=== PATIENT | male | born 1960 | race African-American/Black ===

== ENCOUNTER 2018-01-28 06:49 | Emergency (ER) | payer SELFPAY ==
[~2018-01-28] VITALS: Ht 180.3 cm; Wt 72.7 kg
[2018-01-28] MEDS ORDERED: DIAZEPAM 5 MG TABLET PO ONE (08:00)
[2018-01-28] MEDS ORDERED: KETOROLAC 60MG/2ML VIAL IM ONE (08:00)
[2018-01-28] MEDS ORDERED: CHLORDIAZEPOXIDE 25MG CAPSULE PO ONE (10:45)
[2018-01-28 12:49] VITALS: BP 130/83
== END 2018-01-28 12:49 | disposition home or self-care (01) ==
LOC: ER 06:49
DX: M62.830 Muscle spasm of back (principal); F10.239 Alcohol dependence with withdrawal, unspecified; Y90.9 Presence of alcohol in blood, level not specified; R03.0 Elevated blood-pressure reading, without diagnosis of hypertension; R05 Cough
CPT/HCPCS: 96372; 99283; J1885

== ENCOUNTER 2018-07-30 19:58 | Inpatient (IN) | payer SELFPAY ==
[~2018-07-30] VITALS: Ht 182.9 cm; Wt 77.6 kg
[2018-07-30] MEDS ORDERED: SODIUM CHLORIDE 0.9% 1,000 ML IV ONE (21:06)
[2018-07-30] MEDS ORDERED: ASPIRIN 81MG TABLET PO ONE (21:15)
[2018-07-30] MEDS ORDERED: LORAZEPAM 2MG/ML CPJ IV ONE (21:15)
[2018-07-30] MEDS ORDERED: FOLIC ACID 1 MG, THIAMINE HCL 100 MG, MVI, ADULT NO.1 10 ML in DEXTROSE 5% WATER 1,000 ML IV ONE ×4 (21:15)
[2018-07-30 21:21] LABS: CHLORIDE 98 mEq/L (98-107)
[2018-07-30] MEDS ORDERED: THIAMINE HCL 100 MG/1 ML 2ML VIAL ONE (21:24)
[2018-07-30 21:25] LABS: ETHANOL BLOOD < 10 mg/dL; INR 1.1; PARTIAL THROMBOPLASTIN TIME 26.4 sec (23.4-31.0); PROTHROMBIN TIME 11.3 sec (9.6-11.0)
[2018-07-30 21:31] LABS: BASOPHILS % 0.4 % (0.0-2.0); HEMATOCRIT. 43.4 % (42.0-52.0); HEMOGLOBIN. 14.9 g/dL (14.0-18.0); LYMPHOCYTES % 9.1 % (20.0-50.0); MEAN CORPUSCULAR HEMOGLOBIN 34.2 pg (28.0-32.0); MEAN CORPUSCULAR VOLUME 99.4 fL (80.0-94.0); MEAN PLATELET VOLUME 9.9 fl (7.4-10.4); MONOCYTES % 9.9 % (2.0-8.0); NEUTROPHILS % 80.6 % (40.0-76.0); PLATELET 88 x1000/uL (130-400); RED BLOOD CELL COUNT 4.36 mill/uL (4.7-6.1); RED CELL DISTRIBUTION WIDTH 12.8 % (11.6-14.6)
[2018-07-30] MEDS ORDERED: MAGNESIUM OXIDE 400MG TABLET PO STA (23:00)
[2018-07-31] VITALS (7 sets, daily range): BP systolic 94–127; BP diastolic 62–94
[2018-07-31 00:57] LABS: *AMPHETAMINES SCREEN URINE NEGATIVE (NEGATIVE); *BARBITURATES SCREEN URINE NEGATIVE (NEGATIVE); *BENZODIAZEPINES SCREEN URINE NEGATIVE (NEGATIVE); *COCAINE SCREEN URINE NEGATIVE (NEGATIVE); METHADONE URINE SCREEN NEGATIVE (NEGATIVE)
[2018-07-31 00:58] LABS: CANNABINOID URINE SCREEN NEGATIVE (NEGATIVE); OPIATES URINE SCREEN NEGATIVE (NEGATIVE); PHENCYCLIDINE URINE SCREEN NEGATIVE (NEGATIVE)
[2018-07-31] MEDS ORDERED: LORAZEPAM 2MG/ML CPJ IV PRN (03:30)
[2018-07-31] MEDS ORDERED: FOLIC ACID 1 MG, THIAMINE HCL 100 MG, MVI, ADULT NO.1 10 ML in DEXTROSE 5% WATER 1,000 ML IV SCH ×4 (05:00)
[2018-07-31] MEDS: FAMOTIDINE 20MG TABLET PO SCH ×2 (08:42→21:38)
[2018-07-31] MEDS: CHLORDIAZEPOXIDE 25MG CAPSULE PO SCH ×3 (08:43→21:38)
[2018-07-31 10:54] LABS: HEMATOCRIT. 38.9 % (42.0-52.0); HEMOGLOBIN. 13.1 g/dL (14.0-18.0); MEAN CORPUSCULAR HEMOGLOBIN 33.8 pg (28.0-32.0); MEAN CORPUSCULAR VOLUME 100.5 fL (80.0-94.0); MEAN PLATELET VOLUME 10.1 fl (7.4-10.4); PLATELET 73 x1000/uL (130-400); RED BLOOD CELL COUNT 3.87 mill/uL (4.7-6.1); RED CELL DISTRIBUTION WIDTH 12.5 % (11.6-14.6)
[2018-07-31 11:19] LABS: CHLORIDE 104 mEq/L (98-107)
[2018-07-31] MEDS ORDERED: POTASSIUM CHLORIDE 20MEQ TABLET SR PO NR (12:00)
[2018-07-31] MEDS ORDERED: HYDROCODONE/ACETAMINOPHEN 5/325MG TABLET PO PRN (13:00)
[2018-07-31] MEDS: GABAPENTIN 300MG CAPSULE PO SCH ×2 (13:25→21:38)
[2018-07-31 14:45] LABS: T4 FREE 1.14 ng/dL (0.76-1.46)
[2018-07-31 16:07] LABS: CREATINE KINASE 131 IU/L (39-308)
[2018-07-31 16:08] LABS: CREATINE KINASE MB FRACTION < 1.0 ng/mL (0.5-3.6)
[2018-07-31 17:11] LABS: PLATELET ESTIMATE DECREASED
[2018-07-31] MEDS: DEXT 5%/0.45% NACL KCL 20MEQ/L 1,000 ML IV SCH (18:19)
[2018-08-01 00:35] LABS: CREATINE KINASE 109 IU/L (39-308)
[2018-08-01 00:37] LABS: CREATINE KINASE MB FRACTION < 1.0 ng/mL (0.5-3.6)
[2018-08-01 03:54] VITALS: BP 93/59
[2018-08-01] MEDS: CHLORDIAZEPOXIDE 25MG CAPSULE PO SCH ×3 (06:27→21:37)
[2018-08-01] MEDS: GABAPENTIN 300MG CAPSULE PO SCH ×3 (06:27→21:37)
[2018-08-01] MEDS: FOLIC ACID 1 MG, THIAMINE HCL 100 MG, MVI, ADULT NO.1 10 ML in DEXTROSE 5% WATER 1,000 ML IV SCH ×4 (06:27)
[2018-08-01 07:29] LABS: CHLORIDE 109 mEq/L (98-107)
[2018-08-01 08:01] VITALS: BP 115/75
[2018-08-01 08:07] LABS: CREATINE KINASE 95 IU/L (39-308)
[2018-08-01 08:10] LABS: CREATINE KINASE MB FRACTION < 1.0 ng/mL (0.5-3.6)
[2018-08-01] MEDS: FAMOTIDINE 20MG TABLET PO SCH ×2 (09:29→21:36)
[2018-08-01 12:00] VITALS: BP 121/72
[2018-08-01] MEDS: DEXT 5%/0.45% NACL KCL 20MEQ/L 1,000 ML IV SCH ×2 (15:47→22:58)
[2018-08-01 16:00] VITALS: BP 112/72
[2018-08-01 20:14] VITALS: BP 97/58
[2018-08-02 00:09] VITALS: BP 90/56
[2018-08-02 04:00] VITALS: BP 102/68
[2018-08-02] MEDS: CHLORDIAZEPOXIDE 25MG CAPSULE PO SCH ×2 (06:39→13:22)
[2018-08-02] MEDS: GABAPENTIN 300MG CAPSULE PO SCH ×2 (06:39→13:22)
[2018-08-02] MEDS: DEXT 5%/0.45% NACL KCL 20MEQ/L 1,000 ML IV SCH ×2 (07:30→14:37)
[2018-08-02 08:00] VITALS: BP 102/73
[2018-08-02] MEDS: FAMOTIDINE 20MG TABLET PO SCH (08:52)
[2018-08-02] MEDS: FOLIC ACID 1 MG, THIAMINE HCL 100 MG, MVI, ADULT NO.1 10 ML in DEXTROSE 5% WATER 1,000 ML IV SCH ×4 (08:53)
[2018-08-02 11:56] VITALS: BP 105/73
[2018-08-02 12:04] VITALS: BP 102/62
[2018-08-02 13:19] VITALS: BP 119/75
== END 2018-08-02 18:30 | disposition home or self-care (01) | DRG 201 ==
LOC: ER 19:58 → 6WST 22:24 → EDBEDREQ 22:27 → EDBEDREQTM 22:27 → ENRESERV 23:50
PROVIDERS: ADMIT Internal Medicine; ATTEND Internal Medicine
DX: I47.1 Supraventricular tachycardia (principal); E87.1 Hypo-osmolality and hyponatremia; F41.9 Anxiety disorder, unspecified; M48.54XA Collapsed vertebra, not elsewhere classified, thoracic region, initial encounter for fracture; F10.239 Alcohol dependence with withdrawal, unspecified; F17.210 Nicotine dependence, cigarettes, uncomplicated; Z71.41 Alcohol abuse counseling and surveillance of alcoholic; Z79.899 Other long term (current) drug therapy
CPT/HCPCS: 36415; 71045; 72148; 80048; 80061; 80305; 80320; 82550; 82553; 83036; 83735; 83880; 84439; 84443; 84484; 85379; 93005; 93306; 96374; 97110; 97116; 97162; 99285; J2060; J3411; J3490; J7030; J7070; G0480

== ENCOUNTER 2018-09-23 19:03 | Inpatient (IN) | payer SELFPAY ==
[~2018-09-23] VITALS: Ht 180.3 cm; Wt 69.1 kg
[2018-09-24] MEDS ORDERED: ONDANSETRON HCL 4MG/2ML INJ IV STA (01:04)
[2018-09-24] MEDS ORDERED: SODIUM CHLORIDE 0.9% 1,000 ML IV ONE (01:04)
[2018-09-24 01:50] LABS: BASOPHILS % 0.7 % (0.0-2.0); EOSINOPHILS % 0.2 % (0.0-5.0); HEMATOCRIT. 44.1 % (42.0-52.0); HEMOGLOBIN. 14.9 g/dL (14.0-18.0); LYMPHOCYTES % 57.2 % (20.0-50.0); MEAN CORPUSCULAR HEMOGLOBIN 34.3 pg (28.0-32.0); MEAN CORPUSCULAR VOLUME 101.4 fL (80.0-94.0); MEAN PLATELET VOLUME 9.7 fl (7.4-10.4); MONOCYTES % 14.3 % (2.0-8.0); NEUTROPHILS % 27.6 % (40.0-76.0); PLATELET 73 x1000/uL (130-400); RED BLOOD CELL COUNT 4.35 mill/uL (4.7-6.1); RED CELL DISTRIBUTION WIDTH 13.5 % (11.6-14.6)
[2018-09-24 01:52] LABS: CHLORIDE 103 mEq/L (98-107)
[2018-09-24] MEDS ORDERED: IOHEXOL-300 100 ML BOTTLE ONE (03:01)
[2018-09-24] MEDS ORDERED: CEFTRIAXONE 1 G PREMIX 50 ML IV ONE (06:15)
[2018-09-24 08:00] VITALS: BP 145/91
[2018-09-24] MEDS ORDERED: ONDANSETRON HCL 4MG/2ML INJ IV PRN (08:00)
[2018-09-24] MEDS ORDERED: MAGNESIUM/ALUMINUM HYDROXIDE/SIMETHICONE 30ML UDC PO PRN (08:00)
[2018-09-24] MEDS ORDERED: CLONIDINE 0.1MG TABLET PO PRN (08:00)
[2018-09-24] MEDS ORDERED: IPRATROPIUM/ALBUTEROL 0.5-3(2.5)MG/3ML NEB INH PRN (08:00)
[2018-09-24] MEDS ORDERED: KETOROLAC 15MG/ML VIAL IV PRN (08:00)
[2018-09-24] MEDS ORDERED: GUAIFENESIN 200MG/10ML SUGAR FREE UDC PO PRN (08:00)
[2018-09-24] MEDS ORDERED: NITROGLYCERIN 0.4MG TABLET SL SL PRN (08:00)
[2018-09-24] MEDS ORDERED: ACETAMINOPHEN 325MG TABLET PO PRN (08:00)
[2018-09-24] MEDS ORDERED: DOCUSATE SODIUM 100MG CAPSULE PO PRN (08:00)
[2018-09-24] MEDS ORDERED: ENOXAPARIN 40MG/0.4ML SYR SUBCUT SCH (08:00)
[2018-09-24 09:35] VITALS: BP 145/91
[2018-09-24] MEDS: FAMOTIDINE 20MG TABLET PO SCH ×2 (10:53→21:24)
[2018-09-24] MEDS: ASPIRIN 81MG EC TABLET PO SCH (10:53)
[2018-09-24 12:00] VITALS: BP 129/87
[2018-09-24] MEDS: SODIUM CHLORIDE 0.9% 1,000 ML IV SCH (12:50)
[2018-09-24 15:04] LABS: CREATINE KINASE 193 IU/L (39-308)
[2018-09-24 15:05] LABS: CREATINE KINASE MB FRACTION < 1.0 ng/mL (0.5-3.6)
[2018-09-24 16:00] VITALS: BP 145/89
[2018-09-24] MEDS ORDERED: MVI, ADULT NO.1 10 ML, FOLIC ACID 1 MG, THIAMINE HCL 100 MG in SODIUM CHLORIDE 0.9% 1,0... IV SCH ×4 (16:30)
[2018-09-24 20:00] VITALS: BP 126/72
[2018-09-24] MEDS ORDERED: ZOLPIDEM TARTRATE 5MG TABLET PO PRN (21:00)
[2018-09-25] VITALS: BP 127/75
[2018-09-25 00:26] LABS: CREATINE KINASE 184 IU/L (39-308)
[2018-09-25 00:27] LABS: CREATINE KINASE MB FRACTION < 1.0 ng/mL (0.5-3.6)
[2018-09-25 04:00] VITALS: BP 135/83
[2018-09-25] MEDS: SODIUM CHLORIDE 0.9% 1,000 ML IV SCH ×2 (04:30→06:09)
[2018-09-25 08:00] VITALS: BP 132/86
[2018-09-25] MEDS: FAMOTIDINE 20MG TABLET PO SCH (08:17)
[2018-09-25] MEDS: ASPIRIN 81MG EC TABLET PO SCH (08:17)
[2018-09-25 10:01] VITALS: BP 132/86
[2018-09-29] MEDS ORDERED: L25 MT (11:14)
== END 2018-09-25 11:01 | disposition home or self-care (01) | DRG 243 ==
LOC: ER 19:03 → 5WST 09-24 06:12 → EDBEDREQ 09-24 06:21 → EDBEDREQTM 09-24 06:21 → ENRESERV 09-24 08:07
PROVIDERS: ADMIT Internal Medicine; ATTEND Internal Medicine
DX: K21.9 Gastro-esophageal reflux disease without esophagitis (principal); D61.818 Other pancytopenia; K70.9 Alcoholic liver disease, unspecified; E86.0 Dehydration; F10.20 Alcohol dependence, uncomplicated; F17.210 Nicotine dependence, cigarettes, uncomplicated; K76.0 Fatty (change of) liver, not elsewhere classified; M54.5 Low back pain; R55 Syncope and collapse; G47.00 Insomnia, unspecified
CPT/HCPCS: 36415; 71045; 74177; 80061; 82550; 82553; 83036; 83605; 83880; 84484; 85379; 93005; 93970; 96361; 96365; 96375; 99285; J0696; J2405; J3411; J3490; J7030; Q9967

== ENCOUNTER 2018-09-26 20:49 | Emergency (ER) | payer SELFPAY ==
[~2018-09-26] VITALS: Ht 175.3 cm; Wt 82.0 kg
[2018-09-26] MEDS ORDERED: SODIUM CHLORIDE 0.9% 1,000 ML IV ONE (21:30)
[2018-09-26] MEDS ORDERED: LORAZEPAM 2MG/ML CPJ IV ONE (21:30)
[2018-09-26 21:34] LABS: HEMATOCRIT. 40.8 % (42.0-52.0); MEAN CORPUSCULAR HEMOGLOBIN 34.9 pg (28.0-32.0); MEAN CORPUSCULAR VOLUME 101.9 fL (80.0-94.0); PLATELET 55 x1000/uL (130-400); RED CELL DISTRIBUTION WIDTH 12.9 % (11.6-14.6)
[2018-09-26 21:39] LABS: CHLORIDE 102 mEq/L (98-107)
[2018-09-26 21:59] LABS: PLATELET ESTIMATE DECREASED
[2018-09-27] MEDS ORDERED: LORAZEPAM 2MG/ML CPJ IV ONE (00:30)
[2018-09-27 01:28] VITALS: BP 121/84
[2018-09-28] MEDS ORDERED: LORA-250 PO (15:38)
[2018-09-29] MEDS ORDERED: L25 MT (11:14)
== END 2018-09-27 01:32 | disposition home or self-care (01) ==
LOC: ER 23:45
DX: S09.90XA Unspecified injury of head, initial encounter (principal); R55 Syncope and collapse; F10.239 Alcohol dependence with withdrawal, unspecified; D75.89 Other specified diseases of blood and blood-forming organs; D69.6 Thrombocytopenia, unspecified; D72.819 Decreased white blood cell count, unspecified; E87.6 Hypokalemia; I10 Essential (primary) hypertension; F17.200 Nicotine dependence, unspecified, uncomplicated; Z79.899 Other long term (current) drug therapy; W01.10XA Fall on same level from slipping, tripping and stumbling with subsequent striking against unspecified object, initial encounter; Y93.89 Activity, other specified; Y92.89 Other specified places as the place of occurrence of the external cause; Y99.8 Other external cause status; Y90.9 Presence of alcohol in blood, level not specified
CPT/HCPCS: 36415; 70450; 71045; 80053; 83880; 84484; 85025; 93005; 96361; 96374; 96376; 99284; J2060; J7030; Z7610

== ENCOUNTER 2018-09-27 16:41 | Inpatient (IN) | payer SELFPAY ==
[~2018-09-27] VITALS: Ht 180.3 cm; Wt 77.1 kg
[2018-09-27] MEDS ORDERED: SODIUM CHLORIDE 0.9% 1,000 ML IV ONE (21:02)
[2018-09-27] MEDS ORDERED: ONDANSETRON HCL 4MG/2ML INJ IV STA (21:02)
[2018-09-27] MEDS ORDERED: LORAZEPAM 2MG/ML CPJ IV STA (21:30)
[2018-09-27] MEDS ORDERED: FOLIC ACID 1 MG, THIAMINE HCL 100 MG, MVI, ADULT NO.1 10 ML in DEXTROSE 5% WATER 1,000 ML IV ONE ×4 (21:30)
[2018-09-27 21:36] LABS: CHLORIDE 101 mEq/L (98-107)
[2018-09-27 21:40] LABS: ETHANOL BLOOD < 10 mg/dL
[2018-09-27 21:41] LABS: HEMATOCRIT. 43.6 % (42.0-52.0); HEMOGLOBIN. 14.6 g/dL (14.0-18.0); MEAN CORPUSCULAR HEMOGLOBIN 34.6 pg (28.0-32.0); MEAN CORPUSCULAR VOLUME 103.2 fL (80.0-94.0); MEAN PLATELET VOLUME 10.3 fl (7.4-10.4); PLATELET 55 x1000/uL (130-400); RED BLOOD CELL COUNT 4.22 mill/uL (4.7-6.1); RED CELL DISTRIBUTION WIDTH 13.3 % (11.6-14.6)
[2018-09-27 21:53] LABS: INR 1.1; PARTIAL THROMBOPLASTIN TIME 28.4 sec (23.4-31.0)
[2018-09-27 22:00] LABS: PLATELET ESTIMATE DECREASED
[2018-09-27 22:40] LABS: *AMPHETAMINES SCREEN URINE NEGATIVE (NEGATIVE); *BARBITURATES SCREEN URINE NEGATIVE (NEGATIVE); *BENZODIAZEPINES SCREEN URINE NEGATIVE (NEGATIVE); *COCAINE SCREEN URINE NEGATIVE (NEGATIVE)
[2018-09-27 22:41] LABS: CANNABINOID URINE SCREEN NEGATIVE (NEGATIVE); METHADONE URINE SCREEN NEGATIVE (NEGATIVE); OPIATES URINE SCREEN NEGATIVE (NEGATIVE); PHENCYCLIDINE URINE SCREEN NEGATIVE (NEGATIVE)
[2018-09-27] MEDS ORDERED: ASPIRIN 325MG EC TABLET PO ONE (23:30)
[2018-09-28 09:50] VITALS: BP 128/96
[2018-09-28] MEDS ORDERED: ONDANSETRON HCL 4MG/2ML INJ IV PRN (10:00)
[2018-09-28] MEDS ORDERED: ACETAMINOPHEN 650MG/20.3ML UDC GT PRN (10:00)
[2018-09-28] MEDS ORDERED: GUAIFENESIN 200MG/10ML SUGAR FREE UDC PO PRN (10:00)
[2018-09-28] MEDS ORDERED: DOCUSATE SODIUM 100MG CAPSULE PO PRN (10:00)
[2018-09-28] MEDS ORDERED: ACETAMINOPHEN 325MG TABLET PO PRN (10:00)
[2018-09-28] MEDS ORDERED: ACETAMINOPHEN 650MG SUPP PR PRN (10:00)
[2018-09-28] MEDS ORDERED: NA PHOS,M-B/NA PHOS,DI-BA ENEMA 118ML PR PRN (10:00)
[2018-09-28] MEDS ORDERED: MAGNESIUM/ALUMINUM HYDROXIDE/SIMETHICONE 30ML UDC PO PRN (10:00)
[2018-09-28] MEDS ORDERED: DIPHENHYDRAMINE 50MG/ML VIAL IV PRN (10:00)
[2018-09-28] MEDS ORDERED: IPRATROPIUM/ALBUTEROL 0.5-3(2.5)MG/3ML NEB INH PRN (10:00)
[2018-09-28] MEDS: THIAMINE HCL 100MG TABLET PO SCH (10:45)
[2018-09-28 12:00] VITALS: BP 115/78
[2018-09-28] MEDS: CHLORDIAZEPOXIDE 25MG CAPSULE PO SCH ×2 (12:46→21:10)
[2018-09-28] MEDS: SODIUM CHLORIDE 0.9% INJ 3ML FLUSH IVF SCH ×2 (13:38→21:11)
[2018-09-28] MEDS ORDERED: CHLORDIAZEPOXIDE 25MG CAPSULE PO SCH (14:00)
[2018-09-28] MEDS ORDERED: LORA-250 PO (15:38)
[2018-09-28 16:00] VITALS: BP 117/76
[2018-09-28] MEDS: NICOTINE 7MG PATCH TD SCH ×2 (16:15→17:43)
[2018-09-28 16:59] LABS: CLARITY URINE CLEAR (CLEAR); COLOR URINE YELLOW (YELLOW); KETONES URINE NEGATIVE (NEGATIVE); LEUKOCYTE ESTERASE URINE NEGATIVE (NEGATIVE); NITRITE URINE NEGATIVE (NEGATIVE); OCCULT BLOOD URINE NEGATIVE (NEGATIVE); PH URINE 6.5 (4.5-8.0); PROTEIN URINE NEGATIVE (NEGATIVE); SPECIFIC GRAVITY URINE 1.006 (1.005-1.030)
[2018-09-28 17:13] LABS: *BENZODIAZEPINES SCREEN URINE NEGATIVE (NEGATIVE); *COCAINE SCREEN URINE NEGATIVE (NEGATIVE)
[2018-09-28 17:14] LABS: *AMPHETAMINES SCREEN URINE NEGATIVE (NEGATIVE); *BARBITURATES SCREEN URINE NEGATIVE (NEGATIVE); CANNABINOID URINE SCREEN NEGATIVE (NEGATIVE); METHADONE URINE SCREEN NEGATIVE (NEGATIVE); OPIATES URINE SCREEN NEGATIVE (NEGATIVE); PHENCYCLIDINE URINE SCREEN NEGATIVE (NEGATIVE)
[2018-09-28 20:28] VITALS: BP 112/79
[2018-09-29] VITALS (7 sets, daily range): BP systolic 110–133; BP diastolic 69–85
[2018-09-29] MEDS: SODIUM CHLORIDE 0.9% INJ 3ML FLUSH IVF SCH ×2 (05:09→14:21)
[2018-09-29] MEDS: CHLORDIAZEPOXIDE 25MG CAPSULE PO SCH ×2 (05:09→14:21)
[2018-09-29] MEDS ORDERED: FOLIC ACID 1MG TABLET PO SCH (09:00)
[2018-09-29] MEDS: NICOTINE 7MG PATCH TD SCH (09:11)
[2018-09-29] MEDS: THIAMINE HCL 100MG TABLET PO SCH (09:11)
[2018-09-29 09:34] LABS: HEMATOCRIT. 39.7 % (42.0-52.0); HEMOGLOBIN. 13.6 g/dL (14.0-18.0); MEAN CORPUSCULAR HEMOGLOBIN 34.9 pg (28.0-32.0); MEAN PLATELET VOLUME 11.4 fl (7.4-10.4); RED CELL DISTRIBUTION WIDTH 12.7 % (11.6-14.6)
[2018-09-29 09:58] LABS: CHLORIDE 107 mEq/L (98-107); PLATELET 49 x1000/uL (130-400)
[2018-09-29 10:05] LABS: LDL CHOLESTEROL 53 mg/dL (5-100)
[2018-09-29 10:06] LABS: HDL CHOLESTEROL 52 mg/dL (40-59)
[2018-09-29 10:18] LABS: PLATELET ESTIMATE DECREASED
[2018-09-29] MEDS ORDERED: L25 MT (11:14)
[2018-09-29] MEDS ORDERED: IBUPROFEN 400MG TABLET PO SCH (11:15)
== END 2018-09-29 17:39 | disposition home or self-care (01) | DRG 775 ==
LOC: ER 17:33 → 6WST 09-28 00:12 → EDBEDREQTM 09-28 00:16 → EDBEDREQDT 09-28 00:16 → EDBEDREQ 09-28 00:16 → ENRESERV 09-28 07:45 → 6WST 09-28 19:52
PROVIDERS: ADMIT Family Medicine; ATTEND Family Medicine
DX: F10.230 Alcohol dependence with withdrawal, uncomplicated (principal); R45.851 Suicidal ideations; Y90.0 Blood alcohol level of less than 20 mg/100 ml; F17.210 Nicotine dependence, cigarettes, uncomplicated; G89.29 Other chronic pain; I10 Essential (primary) hypertension; M54.9 Dorsalgia, unspecified; F41.9 Anxiety disorder, unspecified; Z60.2 Problems related to living alone; Z79.899 Other long term (current) drug therapy
CPT/HCPCS: 36415; 71045; 72070; 72110; 80061; 80305; 80307; 80320; 80329; 82140; 83735; 83880; 84484; 93005; 96374; 96375; 99285; J2060; J2405; J3411; J3490; J7030; J7070; G0480

== ENCOUNTER 2018-10-08 20:38 | Emergency (ER) | payer SELFPAY ==
[~2018-10-08] VITALS: Ht 180.3 cm; Wt 75.0 kg
[~2018-10-08 20:38] MED LIST: L25 MT; LORA-250 PO
[2018-10-08] MEDS ORDERED: ONDANSETRON HCL 4MG/2ML INJ IV STA (23:34)
[2018-10-08] MEDS ORDERED: MORPHINE SULFATE 4 MG/ML CPJ (NOT FOR IM USE) IV STA (23:34)
[2018-10-08] MEDS ORDERED: SODIUM CHLORIDE 0.9% 1,000 ML IV ONE (23:34)
[2018-10-08] MEDS ORDERED: FOLIC ACID 1 MG, THIAMINE HCL 100 MG, MVI, ADULT NO.1 10 ML in DEXTROSE 5% WATER 1,000 ML IV ONE ×4 (23:45)
[2018-10-08] MEDS ORDERED: LORAZEPAM 2MG/ML CPJ IV ONE (23:45)
[2018-10-08] MEDS ORDERED: MAGNESIUM/ALUMINUM HYDROXIDE/SIMETHICONE 30ML UDC PO ONE (23:45)
[2018-10-09 00:04] LABS: HEMATOCRIT. 43.9 % (42.0-52.0); HEMOGLOBIN. 14.9 g/dL (14.0-18.0); MEAN CORPUSCULAR HEMOGLOBIN 34.4 pg (28.0-32.0); MEAN CORPUSCULAR VOLUME 101.4 fL (80.0-94.0); MEAN PLATELET VOLUME 8.3 fl (7.4-10.4); PLATELET 135 x1000/uL (130-400); RED BLOOD CELL COUNT 4.33 mill/uL (4.7-6.1); RED CELL DISTRIBUTION WIDTH 13.2 % (11.6-14.6)
[2018-10-09 00:06] LABS: CHLORIDE 107 mEq/L (98-107)
[2018-10-09 00:12] LABS: ETHANOL BLOOD 248 mg/dL
[2018-10-09 01:58] LABS: PLATELET ESTIMATE NORMAL
[2018-10-09] MEDS ORDERED: LORAZEPAM 2MG/ML CPJ IV ONE (02:45)
[2018-10-09 06:00] VITALS: BP 103/72
== END 2018-10-09 06:00 | disposition home or self-care (01) ==
LOC: ER 20:38
DX: T51.0X1A Toxic effect of ethanol, accidental (unintentional), initial encounter (principal); K29.20 Alcoholic gastritis without bleeding; R07.89 Other chest pain; Y90.8 Blood alcohol level of 240 mg/100 ml or more; F17.210 Nicotine dependence, cigarettes, uncomplicated; Z71.6 Tobacco abuse counseling; Y92.018 Other place in single-family (private) house as the place of occurrence of the external cause
CPT/HCPCS: 36415; 71045; 80053; 80320; 83690; 83880; 84484; 85025; 93005; 96365; 96366; 96375; 96376; 99284; J2060; J2270; J2405; J3411; J3490; J7030; J7070; G0480

== ENCOUNTER 2018-10-10 02:58 | Emergency (ER) | payer SELFPAY ==
[~2018-10-10] VITALS: Ht 180.3 cm; Wt 81.0 kg
[2018-10-10 05:20] LABS: CHLORIDE 106 mEq/L (98-107)
[2018-10-10 05:30] LABS: BASOPHILS % 0.9 % (0.0-2.0); EOSINOPHILS % 0.6 % (0.0-5.0); HEMATOCRIT. 43.1 % (42.0-52.0); HEMOGLOBIN. 14.7 g/dL (14.0-18.0); LYMPHOCYTES % 50.3 % (20.0-50.0); MEAN CORPUSCULAR VOLUME 102.5 fL (80.0-94.0); MEAN PLATELET VOLUME 8.8 fl (7.4-10.4); MONOCYTES % 14.7 % (2.0-8.0); NEUTROPHILS % 33.5 % (40.0-76.0); PLATELET 113 x1000/uL (130-400)
[2018-10-10 08:15] VITALS: BP 125/87
== END 2018-10-10 08:20 | disposition home or self-care (01) ==
LOC: ER 02:58
DX: R26.2 Difficulty in walking, not elsewhere classified (principal); M54.5 Low back pain; R03.0 Elevated blood-pressure reading, without diagnosis of hypertension; F10.10 Alcohol abuse, uncomplicated; Y90.7 Blood alcohol level of 200-239 mg/100 ml; F17.210 Nicotine dependence, cigarettes, uncomplicated; Z71.6 Tobacco abuse counseling
CPT/HCPCS: 36415; 71045; 72100; 80320; 93005; 99284; G0480

== ENCOUNTER 2018-10-10 16:45 | Inpatient (IN) | payer SELFPAY ==
[~2018-10-10] VITALS: Ht 180.3 cm; Wt 74.8 kg
[2018-10-10] MEDS ORDERED: LORAZEPAM 2MG/ML CPJ IV ONE (22:45)
[2018-10-10 23:09] LABS: BASOPHILS % 1.1 % (0.0-2.0); EOSINOPHILS % 0.8 % (0.0-5.0); HEMATOCRIT. 45.1 % (42.0-52.0); HEMOGLOBIN. 15.1 g/dL (14.0-18.0); LYMPHOCYTES % 44.1 % (20.0-50.0); MEAN CORPUSCULAR HEMOGLOBIN 34.3 pg (28.0-32.0); MEAN CORPUSCULAR VOLUME 102.5 fL (80.0-94.0); MEAN PLATELET VOLUME 9.5 fl (7.4-10.4); MONOCYTES % 13.9 % (2.0-8.0); NEUTROPHILS % 40.1 % (40.0-76.0); PLATELET 97 x1000/uL (130-400); RED CELL DISTRIBUTION WIDTH 13.1 % (11.6-14.6)
[2018-10-10 23:14] LABS: CHLORIDE 105 mEq/L (98-107)
[2018-10-10 23:19] LABS: ETHANOL BLOOD 80 mg/dL
[2018-10-11 00:55] LABS: *AMPHETAMINES SCREEN URINE NEGATIVE (NEGATIVE); *BARBITURATES SCREEN URINE NEGATIVE (NEGATIVE); *BENZODIAZEPINES SCREEN URINE PRESUMTIVE POSITIVE (NEGATIVE); *COCAINE SCREEN URINE NEGATIVE (NEGATIVE); CANNABINOID URINE SCREEN NEGATIVE (NEGATIVE); METHADONE URINE SCREEN NEGATIVE (NEGATIVE); OPIATES URINE SCREEN NEGATIVE (NEGATIVE); PHENCYCLIDINE URINE SCREEN NEGATIVE (NEGATIVE)
[2018-10-11] MEDS ORDERED: ONDANSETRON HCL 4MG/2ML INJ IV PRN (01:00)
[2018-10-11] MEDS ORDERED: DIPHENHYDRAMINE 50MG/ML VIAL IV PRN (01:00)
[2018-10-11] MEDS ORDERED: LORAZEPAM 2MG/ML CPJ IV PRN (01:00)
[2018-10-11] MEDS ORDERED: ENOXAPARIN 40MG/0.4ML SYR SUBCUT SCH (01:00)
[2018-10-11] MEDS ORDERED: MORPHINE SULFATE 2 MG/ML CPJ (NOT FOR IM USE) IV PRN (01:00)
[2018-10-11] MEDS ORDERED: CLONIDINE 0.1MG TABLET PO PRN (01:00)
[2018-10-11] MEDS ORDERED: HYDROCODONE/ACETAMINOPHEN 5/325MG TABLET PO PRN (01:00)
[2018-10-11 02:03] VITALS: BP 149/98
[2018-10-11] MEDS: SODIUM CHLORIDE 0.9% 1,000 ML IV SCH ×3 (03:27→22:21)
[2018-10-11 04:00] VITALS: BP 118/79
[2018-10-11 08:00] VITALS: BP 132/86
[2018-10-11 08:35] LABS: CREATINE KINASE 155 IU/L (39-308)
[2018-10-11 08:36] LABS: CREATINE KINASE MB FRACTION < 1.0 ng/mL (0.5-3.6)
[2018-10-11] MEDS ORDERED: THIAMINE HCL 100MG TABLET PO SCH (09:00)
[2018-10-11] MEDS ORDERED: FOLIC ACID 1 MG, THIAMINE HCL 100 MG, MVI, ADULT NO.1 10 ML in DEXTROSE 5% WATER 1,000 ML IV ONE ×4 (11:00)
[2018-10-11] MEDS: CHLORDIAZEPOXIDE 25MG CAPSULE PO SCH ×2 (11:09→17:07)
[2018-10-11 12:00] VITALS: BP 123/88
[2018-10-11 15:51] LABS: CREATINE KINASE 135 IU/L (39-308)
[2018-10-11 15:52] LABS: CREATINE KINASE MB FRACTION < 1.0 ng/mL (0.5-3.6)
[2018-10-11 16:00] VITALS: BP 112/77
[2018-10-11 20:00] VITALS: BP 115/73
[2018-10-12] VITALS: BP 121/78
[2018-10-12] MEDS: CHLORDIAZEPOXIDE 25MG CAPSULE PO SCH ×2 (03:45→09:02)
[2018-10-12 04:00] VITALS: BP 110/73
[2018-10-12 06:54] LABS: CHLORIDE 108 mEq/L (98-107)
[2018-10-12 06:58] LABS: BASOPHILS % 0.8 % (0.0-2.0); EOSINOPHILS % 1.2 % (0.0-5.0); HEMOGLOBIN. 12.9 g/dL (14.0-18.0); MEAN CORPUSCULAR HEMOGLOBIN 34.7 pg (28.0-32.0); MEAN CORPUSCULAR VOLUME 102.2 fL (80.0-94.0); MEAN PLATELET VOLUME 9.8 fl (7.4-10.4); MONOCYTES % 13.8 % (2.0-8.0); NEUTROPHILS % 40.2 % (40.0-76.0); PLATELET 72 x1000/uL (130-400); RED BLOOD CELL COUNT 3.72 mill/uL (4.7-6.1)
[2018-10-12] MEDS: SODIUM CHLORIDE 0.9% 1,000 ML IV SCH (09:02)
[2018-10-12 16:07] VITALS: BP 105/81
[2018-10-12 16:14] VITALS: BP 105/81
== END 2018-10-12 16:51 | disposition home or self-care (01) | DRG 58 ==
LOC: ER 16:45 → ENRESERV 23:59 → 6WST 10-11 00:27 → EDBEDREQ 10-11 00:31 → EDBEDREQTM 10-11 00:31
PROVIDERS: ADMIT Internal Medicine Nephrology; ATTEND Internal Medicine Nephrology
DX: R26.0 Ataxic gait (principal); D69.6 Thrombocytopenia, unspecified; K76.0 Fatty (change of) liver, not elsewhere classified; F10.239 Alcohol dependence with withdrawal, unspecified; F17.210 Nicotine dependence, cigarettes, uncomplicated; G89.29 Other chronic pain; G40.89 Other seizures; Y90.4 Blood alcohol level of 80-99 mg/100 ml; M54.5 Low back pain; Z79.899 Other long term (current) drug therapy; Z87.81 Personal history of (healed) traumatic fracture
CPT/HCPCS: 36415; 70551; 80048; 80305; 80307; 80320; 80329; 82550; 82553; 84484; 96374; 97161; 99285; J2060; J3411; J3490; J7070; G0480

== ENCOUNTER 2018-11-03 19:17 | Emergency (ER) | payer SELFPAY ==
[~2018-11-03] VITALS: Ht 182.9 cm; Wt 77.0 kg
[2018-11-04 00:48] VITALS: BP 158/93
== END 2018-11-04 00:51 | disposition home or self-care (01) ==
LOC: ER 19:17
DX: F10.129 Alcohol abuse with intoxication, unspecified (principal); Y90.8 Blood alcohol level of 240 mg/100 ml or more; R03.0 Elevated blood-pressure reading, without diagnosis of hypertension
CPT/HCPCS: 36415; 80320; 99283; G0480

== ENCOUNTER 2018-11-07 19:11 | Emergency (ER) | payer MEDICAID ==
[~2018-11-07] VITALS: Ht 180.3 cm; Wt 73.0 kg
[2018-11-08 00:23] VITALS: BP 132/86
== END 2018-11-08 01:43 | disposition home or self-care (01) ==
LOC: ER 19:11
DX: F10.20 Alcohol dependence, uncomplicated (principal); F22 Delusional disorders; Y90.0 Blood alcohol level of less than 20 mg/100 ml; F17.200 Nicotine dependence, unspecified, uncomplicated
CPT/HCPCS: 72192; 99284

== ENCOUNTER 2018-12-21 17:52 | Emergency (ER) | payer MEDICAID ==
[~2018-12-21] VITALS: Ht 180.3 cm; Wt 77.0 kg
[2018-12-21] MEDS ORDERED: SODIUM CHLORIDE 0.9% 1,000 ML IV ONE (18:31)
[2018-12-21] MEDS ORDERED: KETOROLAC 30MG/ML VIAL IV STA (18:31)
[2018-12-21] MEDS ORDERED: MORPHINE SULFATE 4 MG/ML CPJ (NOT FOR IM USE) IV STA (18:31)
[2018-12-21] MEDS ORDERED: ONDANSETRON HCL 4MG/2ML INJ IV STA (18:31)
[2018-12-21] MEDS ORDERED: LORAZEPAM 2MG/ML CPJ IV ONE (18:45)
[2018-12-21 19:21] LABS: HEMATOCRIT. 42.2 % (42.0-52.0); HEMOGLOBIN. 14.3 g/dL (14.0-18.0); MEAN CORPUSCULAR HEMOGLOBIN 34.8 pg (28.0-32.0); MEAN CORPUSCULAR VOLUME 102.9 fL (80.0-94.0); MEAN PLATELET VOLUME 10.3 fl (7.4-10.4); PLATELET 63 x1000/uL (130-400); RED BLOOD CELL COUNT 4.11 mill/uL (4.7-6.1); RED CELL DISTRIBUTION WIDTH 12.9 % (11.6-14.6)
[2018-12-21 19:25] LABS: CHLORIDE 101 mEq/L (98-107)
[2018-12-21 19:30] LABS: ETHANOL BLOOD 79 mg/dL
[2018-12-21] MEDS ORDERED: FOLIC ACID 1 MG, THIAMINE HCL 100 MG, MVI, ADULT NO.1 10 ML in DEXTROSE 5% WATER 1,000 ML IV ONE ×4 (20:15)
[2018-12-21 20:38] LABS: PLATELET ESTIMATE MARKEDLY DECREASED
[2018-12-22] MEDS ORDERED: LORAZEPAM 2MG/ML CPJ IV ONE (00:45)
[2018-12-22 01:07] LABS: CLARITY URINE CLEAR (CLEAR); COLOR URINE DARK YELLOW (YELLOW); KETONES URINE TRACE (NEGATIVE); LEUKOCYTE ESTERASE URINE NEGATIVE (NEGATIVE); NITRITE URINE NEGATIVE (NEGATIVE); OCCULT BLOOD URINE NEGATIVE (NEGATIVE); PH URINE 6.5 (4.5-8.0); PROTEIN URINE NEGATIVE (NEGATIVE); SPECIFIC GRAVITY URINE 1.016 (1.005-1.030)
[2018-12-22 01:20] LABS: *BARBITURATES SCREEN URINE NEGATIVE (NEGATIVE); *BENZODIAZEPINES SCREEN URINE PRESUMTIVE POSITIVE (NEGATIVE); *COCAINE SCREEN URINE NEGATIVE (NEGATIVE)
[2018-12-22 01:21] LABS: *AMPHETAMINES SCREEN URINE NEGATIVE (NEGATIVE); CANNABINOID URINE SCREEN NEGATIVE (NEGATIVE); METHADONE URINE SCREEN NEGATIVE (NEGATIVE); OPIATES URINE SCREEN NEGATIVE (NEGATIVE); PHENCYCLIDINE URINE SCREEN NEGATIVE (NEGATIVE)
[2018-12-22 05:38] VITALS: BP 123/74
== END 2018-12-22 05:44 | disposition home or self-care (01) ==
LOC: ER 17:52
DX: S39.012A Strain of muscle, fascia and tendon of lower back, initial encounter (principal); F41.9 Anxiety disorder, unspecified; F17.200 Nicotine dependence, unspecified, uncomplicated; I49.9 Cardiac arrhythmia, unspecified; F10.20 Alcohol dependence, uncomplicated; X58.XXXA Exposure to other specified factors, initial encounter; Y93.89 Activity, other specified; Y92.89 Other specified places as the place of occurrence of the external cause; Y99.8 Other external cause status; Y90.9 Presence of alcohol in blood, level not specified
CPT/HCPCS: 36415; 74176; 80053; 80305; 80320; 81003; 83690; 83880; 84484; 85025; 93005; 96365; 96366; 96375; 96376; 99284; J1885; J2060; J2405; J3411; J3490; J7030; J7070; Z7610; J2270; G0480

== ENCOUNTER 2018-12-22 22:21 | Emergency (ER) | payer MEDICAID ==
[~2018-12-22] VITALS: Ht 180.3 cm; Wt 77.0 kg
[2018-12-23] MEDS ORDERED: ONDANSETRON HCL 4MG/2ML INJ IV STA (01:31)
[2018-12-23] MEDS ORDERED: KETOROLAC 30MG/ML VIAL IV STA (01:31)
[2018-12-23 02:37] LABS: HEMATOCRIT. 41.9 % (42.0-52.0); HEMOGLOBIN. 14.5 g/dL (14.0-18.0); MEAN CORPUSCULAR HEMOGLOBIN 34.9 pg (28.0-32.0); MEAN CORPUSCULAR VOLUME 100.8 fL (80.0-94.0); MEAN PLATELET VOLUME 10.2 fl (7.4-10.4); PLATELET 55 x1000/uL (130-400); RED BLOOD CELL COUNT 4.16 mill/uL (4.7-6.1); RED CELL DISTRIBUTION WIDTH 12.6 % (11.6-14.6)
[2018-12-23 02:43] LABS: CHLORIDE 102 mEq/L (98-107)
[2018-12-23 02:44] LABS: CLARITY URINE CLEAR (CLEAR); COLOR URINE YELLOW (YELLOW); KETONES URINE NEGATIVE (NEGATIVE); LEUKOCYTE ESTERASE URINE NEGATIVE (NEGATIVE); NITRITE URINE NEGATIVE (NEGATIVE); OCCULT BLOOD URINE NEGATIVE (NEGATIVE); PROTEIN URINE NEGATIVE (NEGATIVE)
[2018-12-23 03:28] LABS: PLATELET ESTIMATE DECREASED
[2018-12-23 05:40] VITALS: BP 154/92
== END 2018-12-23 05:57 | disposition home or self-care (01) ==
LOC: ER 22:21
DX: G89.29 Other chronic pain (principal); M54.5 Low back pain; R03.0 Elevated blood-pressure reading, without diagnosis of hypertension; Z91.81 History of falling
CPT/HCPCS: 36415; 70450; 72070; 72100; 80053; 81003; 83690; 85025; 96374; 96375; 99284; J1885; J2405; Z7610

== ENCOUNTER 2019-01-20 03:04 | Emergency (ER) | payer MEDICAID ==
[~2019-01-20] VITALS: Ht 172.7 cm; Wt 69.0 kg
[2019-01-20] MEDS ORDERED: FOLIC ACID 1 MG, THIAMINE HCL 100 MG, MVI, ADULT NO.1 10 ML in DEXTROSE 5% WATER 1,000 ML IV ONE ×4 (04:15)
[2019-01-20] MEDS ORDERED: LORAZEPAM 2MG/ML CPJ IV ONE (04:15)
[2019-01-20 04:37] LABS: CHLORIDE 100 mEq/L (98-107)
[2019-01-20 04:38] LABS: HEMATOCRIT. 44.9 % (42.0-52.0); HEMOGLOBIN. 15.6 g/dL (14.0-18.0); MEAN CORPUSCULAR HEMOGLOBIN 34.6 pg (28.0-32.0); MEAN CORPUSCULAR VOLUME 99.8 fL (80.0-94.0); MEAN PLATELET VOLUME 9.3 fl (7.4-10.4); PLATELET 66 x1000/uL (130-400); RED CELL DISTRIBUTION WIDTH 12.5 % (11.6-14.6)
[2019-01-20 04:41] LABS: ETHANOL BLOOD < 10 mg/dL; INR 1.1; PROTHROMBIN TIME 11.6 sec (9.6-11.0)
[2019-01-20] MEDS ORDERED: THIAMINE HCL 100 MG/1 ML 2ML VIAL ONE (05:13)
[2019-01-20] MEDS ORDERED: SODIUM CHLORIDE 0.9% 1,000 ML IV ONE (05:24)
[2019-01-20] MEDS ORDERED: FOLIC ACID 1 MG, THIAMINE HCL 100 MG, MVI, ADULT NO.1 10 ML in SODIUM CHLORIDE 0.9% 1,0... IV NR ×4 (05:45)
[2019-01-20 05:56] LABS: ATYPICAL LYMPHOCYTES 2
[2019-01-20 05:57] LABS: PLATELET ESTIMATE DECREASED
[2019-01-20 06:54] VITALS: BP 153/104
[2019-01-20 07:37] LABS: CLARITY URINE CLEAR (CLEAR); COLOR URINE YELLOW (YELLOW); KETONES URINE 1+ (NEGATIVE); LEUKOCYTE ESTERASE URINE NEGATIVE (NEGATIVE); NITRITE URINE NEGATIVE (NEGATIVE); OCCULT BLOOD URINE NEGATIVE (NEGATIVE); PH URINE 7.5 (4.5-8.0); PROTEIN URINE NEGATIVE (NEGATIVE); SPECIFIC GRAVITY URINE 1.014 (1.005-1.030)
[2019-01-20 08:52] LABS: *AMPHETAMINES SCREEN URINE NEGATIVE (NEGATIVE); *BARBITURATES SCREEN URINE NEGATIVE (NEGATIVE); *BENZODIAZEPINES SCREEN URINE NEGATIVE (NEGATIVE); *COCAINE SCREEN URINE NEGATIVE (NEGATIVE); METHADONE URINE SCREEN NEGATIVE (NEGATIVE); OPIATES URINE SCREEN NEGATIVE (NEGATIVE)
[2019-01-20 08:53] LABS: CANNABINOID URINE SCREEN NEGATIVE (NEGATIVE); PHENCYCLIDINE URINE SCREEN NEGATIVE (NEGATIVE)
== END 2019-01-20 07:10 | disposition home or self-care (01) ==
LOC: ER 03:04
DX: F10.239 Alcohol dependence with withdrawal, unspecified (principal); G89.29 Other chronic pain; M54.9 Dorsalgia, unspecified; F17.200 Nicotine dependence, unspecified, uncomplicated; D72.819 Decreased white blood cell count, unspecified; E87.5 Hyperkalemia; E87.1 Hypo-osmolality and hyponatremia; Z79.899 Other long term (current) drug therapy; Y90.0 Blood alcohol level of less than 20 mg/100 ml
CPT/HCPCS: 36415; 80053; 80305; 80320; 81003; 85025; 85610; 93005; 96365; 96375; 99284; J2060; J3411; J3490; J7030; Z7610; J7070; G0480

== ENCOUNTER 2019-02-13 12:23 | Emergency (ER) | payer MEDICAID ==
[~2019-02-13] VITALS: Ht 180.3 cm; Wt 74.0 kg
[2019-02-13] MEDS ORDERED: HYDROCODONE/ACETAMINOPHEN 5/325MG TABLET PO ONE (18:30)
[2019-02-13] MEDS ORDERED: IBUPROFEN 600MG TABLET PO ONE (18:30)
[2019-02-13] MEDS ORDERED: MAGNESIUM/ALUMINUM HYDROXIDE/SIMETHICONE 30ML UDC PO ONE (20:45)
[2019-02-13] MEDS ORDERED: VISCOUS LIDOCAINE 2% 15 ML UDC PO ONE (20:45)
[2019-02-13 21:15] VITALS: BP 117/78
== END 2019-02-13 22:05 | disposition home or self-care (01) ==
LOC: ER 12:23
DX: S62.91XA Unspecified fracture of right hand, initial encounter for closed fracture (principal); W10.8XXA Fall (on) (from) other stairs and steps, initial encounter; Y93.89 Activity, other specified; Y92.89 Other specified places as the place of occurrence of the external cause; Y99.8 Other external cause status; F10.20 Alcohol dependence, uncomplicated; Y90.0 Blood alcohol level of less than 20 mg/100 ml
CPT/HCPCS: 29125; 71045; 73000; 73130; 99284; A4565

== ENCOUNTER 2019-03-02 23:54 | Emergency (ER) | payer MEDICAID ==
[~2019-03-02] VITALS: Ht 182.9 cm; Wt 76.0 kg
[2019-03-03 08:05] VITALS: BP 122/64
== END 2019-03-03 08:06 | disposition home or self-care (01) ==
LOC: ER 23:54
DX: S62.394A Other fracture of fourth metacarpal bone, right hand, initial encounter for closed fracture (principal); S62.396A Other fracture of fifth metacarpal bone, right hand, initial encounter for closed fracture; F10.229 Alcohol dependence with intoxication, unspecified; F17.210 Nicotine dependence, cigarettes, uncomplicated; Z71.6 Tobacco abuse counseling; X58.XXXA Exposure to other specified factors, initial encounter; Y93.89 Activity, other specified; Y92.89 Other specified places as the place of occurrence of the external cause; Y90.8 Blood alcohol level of 240 mg/100 ml or more
CPT/HCPCS: 36415; 73130; 80320; 99284; 99406; Z7610; G0480

== ENCOUNTER 2019-03-08 20:04 | Emergency (ER) | payer MEDICAID ==
[~2019-03-08] VITALS: Ht 180.3 cm; Wt 75.0 kg
[2019-03-09] MEDS ORDERED: LORAZEPAM 2MG/ML CPJ IV ONE (07:45)
[2019-03-09] MEDS ORDERED: FOLIC ACID 1 MG, THIAMINE HCL 100 MG, MVI, ADULT NO.1 10 ML in DEXTROSE 5% WATER 1,000 ML IV ONE ×4 (07:45)
[2019-03-09 08:39] LABS: HEMATOCRIT. 43.9 % (42.0-52.0); HEMOGLOBIN. 15.1 g/dL (14.0-18.0); MEAN CORPUSCULAR HEMOGLOBIN 34.6 pg (28.0-32.0); MEAN CORPUSCULAR VOLUME 100.8 fL (80.0-94.0); MEAN PLATELET VOLUME 10.2 fl (7.4-10.4); RED BLOOD CELL COUNT 4.36 mill/uL (4.7-6.1); RED CELL DISTRIBUTION WIDTH 13.1 % (11.6-14.6)
[2019-03-09 08:46] LABS: CHLORIDE 101 mEq/L (98-107)
[2019-03-09 08:51] LABS: ETHANOL BLOOD < 10 mg/dL
[2019-03-09] MEDS ORDERED: CHLORDIAZEPOXIDE 25MG CAPSULE PO ONE (09:45)
[2019-03-09 10:38] VITALS: BP 131/76
[2019-03-09 10:41] LABS: PLATELET ESTIMATE MARKEDLY DECREASED
[2019-03-09 10:42] LABS: PLATELET 41 x1000/uL (130-400)
== END 2019-03-09 10:42 | disposition home or self-care (01) ==
LOC: ER 20:04
DX: F10.20 Alcohol dependence, uncomplicated (principal); Y90.0 Blood alcohol level of less than 20 mg/100 ml; D72.819 Decreased white blood cell count, unspecified; D69.6 Thrombocytopenia, unspecified; F17.290 Nicotine dependence, other tobacco product, uncomplicated
CPT/HCPCS: 36415; 80053; 80320; 85025; 96365; 96366; 96375; 99283; J2060; J3411; J3490; J7070; Z7610; G0480

== ENCOUNTER 2019-04-08 18:36 | Emergency (ER) | payer MEDICAID ==
[~2019-04-08] VITALS: Ht 180.3 cm; Wt 74.0 kg
[2019-04-08] MEDS ORDERED: KETOROLAC 30MG/ML VIAL IV ONE (23:00)
[2019-04-08] MEDS ORDERED: KETOROLAC 60MG/2ML VIAL IM ONE (23:15)
[2019-04-08 23:55] VITALS: BP 131/87
== END 2019-04-08 23:56 | disposition home or self-care (01) ==
LOC: ER 18:36
DX: S33.5XXA Sprain of ligaments of lumbar spine, initial encounter (principal); M62.830 Muscle spasm of back; F10.20 Alcohol dependence, uncomplicated; Z79.899 Other long term (current) drug therapy; X58.XXXA Exposure to other specified factors, initial encounter; Y93.89 Activity, other specified; Y92.89 Other specified places as the place of occurrence of the external cause; Y99.8 Other external cause status; Y90.9 Presence of alcohol in blood, level not specified
CPT/HCPCS: 96372; 99283; J1885

== ENCOUNTER 2019-05-16 18:01 | Emergency (ER) | payer MEDICAID ==
[~2019-05-16] VITALS: Ht 182.9 cm; Wt 73.0 kg
[2019-05-16] MEDS ORDERED: KETOROLAC 30MG/ML VIAL IM ONE (19:00)
[2019-05-16 20:30] VITALS: BP 134/74
== END 2019-05-16 20:36 | disposition home or self-care (01) ==
LOC: ER 18:01
DX: S20.211A Contusion of right front wall of thorax, initial encounter (principal); F10.20 Alcohol dependence, uncomplicated; Z79.899 Other long term (current) drug therapy; W18.39XA Other fall on same level, initial encounter; Y93.89 Activity, other specified; Y92.89 Other specified places as the place of occurrence of the external cause; Y99.8 Other external cause status; Y90.9 Presence of alcohol in blood, level not specified
CPT/HCPCS: 71101; 96372; 99283; J1885

== ENCOUNTER 2019-05-19 05:51 | Emergency (ER) | payer MEDICAID ==
[~2019-05-19] VITALS: Ht 180.3 cm; Wt 76.0 kg
[2019-05-19] MEDS ORDERED: KETOROLAC 60MG/2ML VIAL IM ONE (07:00)
[2019-05-19 12:08] VITALS: BP 122/85
== END 2019-05-19 12:20 | disposition home or self-care (01) ==
LOC: ER 05:51
DX: R07.81 Pleurodynia (principal); M54.9 Dorsalgia, unspecified
CPT/HCPCS: 71111; 72100; 93005; 96372; 99285; J1885

== ENCOUNTER 2019-06-14 12:06 | Emergency (ER) | payer MEDICAID ==
[~2019-06-14] VITALS: Ht 182.9 cm; Wt 75.0 kg
[2019-06-14] MEDS ORDERED: SODIUM CHLORIDE 0.9% 1,000 ML IV ONE (14:05)
[2019-06-14] MEDS ORDERED: LORAZEPAM 2MG/ML CPJ IV ONE (14:15)
[2019-06-14 14:27] LABS: BASOPHILS % 0.7 % (0.0-2.0); EOSINOPHILS % 0.1 % (0.0-5.0); HEMATOCRIT. 42.1 % (42.0-52.0); HEMOGLOBIN. 14.5 g/dL (14.0-18.0); LYMPHOCYTES % 22.7 % (20.0-50.0); MEAN CORPUSCULAR HEMOGLOBIN 34.3 pg (28.0-32.0); MEAN CORPUSCULAR VOLUME 99.5 fL (80.0-94.0); MEAN PLATELET VOLUME 9.9 fl (7.4-10.4); MONOCYTES % 12.3 % (2.0-8.0); NEUTROPHILS % 64.2 % (40.0-76.0); PLATELET 56 x1000/uL (130-400); RED BLOOD CELL COUNT 4.23 mill/uL (4.7-6.1); RED CELL DISTRIBUTION WIDTH 13.7 % (11.6-14.6)
[2019-06-14 14:30] LABS: CHLORIDE 97 mEq/L (98-107)
[2019-06-14 14:33] LABS: ETHANOL BLOOD < 10 mg/dL
[2019-06-14] MEDS ORDERED: ASPIRIN 325MG EC TABLET PO ONE (17:00)
[2019-06-14] MEDS ORDERED: GUAIFENESIN 200MG/10ML SUGAR FREE UDC PO PRN (17:15)
[2019-06-14] MEDS ORDERED: DOCUSATE SODIUM 100MG CAPSULE PO PRN (17:15)
[2019-06-14] MEDS ORDERED: ONDANSETRON HCL 4MG/2ML INJ IV PRN (17:15)
[2019-06-14] MEDS ORDERED: SODIUM CHLORIDE 0.45% 1,000 ML IV SCH (17:15)
[2019-06-14] MEDS ORDERED: MAGNESIUM/ALUMINUM HYDROXIDE/SIMETHICONE 30ML UDC PO PRN (17:15)
[2019-06-14] MEDS ORDERED: CLONIDINE 0.1MG TABLET PO PRN (17:15)
[2019-06-14 17:27] LABS: CLARITY URINE CLEAR (CLEAR); COLOR URINE ORANGE (YELLOW); KETONES URINE 2+ (NEGATIVE); LEUKOCYTE ESTERASE URINE TRACE (NEGATIVE); NITRITE URINE NEGATIVE (NEGATIVE); OCCULT BLOOD URINE NEGATIVE (NEGATIVE); PH URINE 7.5 (4.5-8.0); PROTEIN URINE 1+ (NEGATIVE); SPECIFIC GRAVITY URINE 1.031 (1.005-1.030)
[2019-06-14 17:39] LABS: *AMPHETAMINES SCREEN URINE NEGATIVE (NEGATIVE); *BARBITURATES SCREEN URINE NEGATIVE (NEGATIVE); *BENZODIAZEPINES SCREEN URINE PRESUMTIVE POSITIVE (NEGATIVE); *COCAINE SCREEN URINE NEGATIVE (NEGATIVE)
[2019-06-14 17:40] LABS: CANNABINOID URINE SCREEN NEGATIVE (NEGATIVE); METHADONE URINE SCREEN NEGATIVE (NEGATIVE); OPIATES URINE SCREEN NEGATIVE (NEGATIVE)
[2019-06-14 17:41] LABS: PHENCYCLIDINE URINE SCREEN NEGATIVE (NEGATIVE)
[2019-06-14] MEDS ORDERED: CHLORDIAZEPOXIDE 25MG CAPSULE PO NR (18:15)
[2019-06-14] MEDS ORDERED: THIAMINE HCL 100MG TABLET PO NR (18:30)
[2019-06-14] MEDS ORDERED: ENOXAPARIN 40MG/0.4ML SYR SUBCUT SCH (20:00)
[2019-06-14] MEDS ORDERED: CHLORDIAZEPOXIDE 25MG CAPSULE PO SCH (22:00)
[2019-06-14 23:56] LABS: CREATINE KINASE 230 IU/L (39-308)
[2019-06-14 23:57] LABS: CREATINE KINASE MB FRACTION 1.6 ng/mL (0.5-3.6)
[2019-06-15 00:50] VITALS: BP 129/89
[2019-06-15] MEDS ORDERED: THIAMINE HCL 100MG TABLET PO SCH (09:00)
[2019-06-15] MEDS ORDERED: FOLIC ACID 1MG TABLET PO SCH (09:00)
[2019-06-15] MEDS ORDERED: NITROGLYCERIN 0.1MG/HR PATCH TOP SCH (09:00)
[2019-06-15] MEDS ORDERED: ASPIRIN 81MG TABLET PO SCH (09:00)
== END 2019-06-15 00:55 | disposition left against medical advice (07) ==
LOC: ER 12:06 → ENRESERV 06-15 01:13 → CANRESERV 06-15 01:13 → CANBEDREQ 06-15 01:23
DX: R94.31 Abnormal electrocardiogram [ECG] [EKG] (principal); F10.239 Alcohol dependence with withdrawal, unspecified; Y90.0 Blood alcohol level of less than 20 mg/100 ml
CPT/HCPCS: 36415; 71045; 80053; 80061; 80305; 80320; 81003; 82550; 82553; 84484; 85025; 93005; 96374; 99291; J2060; J7030; G0480

== ENCOUNTER 2019-06-15 02:06 | Emergency (ER) | payer MEDICAID ==
[~2019-06-15] VITALS: Ht 182.9 cm; Wt 77.0 kg
[2019-06-15] MEDS ORDERED: MAGNESIUM/ALUMINUM HYDROXIDE/SIMETHICONE 30ML UDC PO STA (03:52)
[2019-06-15 07:08] VITALS: BP 140/92
== END 2019-06-15 07:24 | disposition left against medical advice (07) ==
LOC: ER 02:06 → CANBEDREQ 16:55
DX: I10 Essential (primary) hypertension (principal); R94.31 Abnormal electrocardiogram [ECG] [EKG]; F10.239 Alcohol dependence with withdrawal, unspecified; R10.9 Unspecified abdominal pain; Y90.9 Presence of alcohol in blood, level not specified
CPT/HCPCS: 93005; 99283

== ENCOUNTER 2019-09-14 22:13 | Emergency (ER) | payer MEDICAID ==
[~2019-09-14] VITALS: Ht 180.3 cm; Wt 71.0 kg
[2019-09-15] MEDS ORDERED: ONDANSETRON HCL 4MG/2ML INJ IV STA (02:56)
[2019-09-15] MEDS ORDERED: MAGNESIUM 2 G PREMIX 50 ML IV ONE (03:00)
[2019-09-15] MEDS ORDERED: FOLIC ACID 1 MG, THIAMINE HCL 100 MG, MVI, ADULT NO.1 10 ML in DEXTROSE 5% WATER 1,000 ML IV ONE ×4 (03:00)
[2019-09-15 03:08] LABS: EOSINOPHILS % 0.7 % (0.0-5.0); HEMATOCRIT. 43.7 % (42.0-52.0); HEMOGLOBIN. 14.9 g/dL (14.0-18.0); LYMPHOCYTES % 41.6 % (20.0-50.0); MEAN CORPUSCULAR HEMOGLOBIN 34.3 pg (28.0-32.0); MEAN CORPUSCULAR VOLUME 100.6 fL (80.0-94.0); MEAN PLATELET VOLUME 8.6 fl (7.4-10.4); MONOCYTES % 9.2 % (2.0-8.0); NEUTROPHILS % 47.5 % (40.0-76.0); PLATELET 125 x1000/uL (130-400); RED BLOOD CELL COUNT 4.34 mill/uL (4.7-6.1)
[2019-09-15 03:11] LABS: CHLORIDE 105 mEq/L (98-107)
[2019-09-15 08:52] VITALS: BP 119/88
== END 2019-09-15 08:53 | disposition home or self-care (01) ==
LOC: ER 22:13
DX: F10.20 Alcohol dependence, uncomplicated (principal); Y90.9 Presence of alcohol in blood, level not specified; R03.0 Elevated blood-pressure reading, without diagnosis of hypertension
CPT/HCPCS: 36415; 80053; 83690; 85025; 93005; 96365; 96366; 96368; 96375; 99285; J2405; J3411; J3475; J3490; J7070

== ENCOUNTER 2019-10-03 14:25 | Inpatient (IN) | payer MEDICAID ==
[~2019-10-03] VITALS: Ht 180.3 cm; Wt 69.7 kg
[2019-10-03] MEDS ORDERED: SODIUM CHLORIDE 0.9% 1,000 ML IV ONE (14:48)
[2019-10-03 15:16] LABS: BASOPHILS % 1.1 % (0.0-2.0); HEMATOCRIT. 41.4 % (42.0-52.0); LYMPHOCYTES % 58.5 % (20.0-50.0); MEAN CORPUSCULAR HEMOGLOBIN 33.9 pg (28.0-32.0); MEAN CORPUSCULAR VOLUME 100.4 fL (80.0-94.0); MEAN PLATELET VOLUME 9.4 fl (7.4-10.4); MONOCYTES % 11.2 % (2.0-8.0); NEUTROPHILS % 29.2 % (40.0-76.0); PLATELET 68 x1000/uL (130-400); RED BLOOD CELL COUNT 4.12 mill/uL (4.7-6.1)
[2019-10-03 15:19] LABS: CHLORIDE 105 mEq/L (98-107)
[2019-10-03 15:23] LABS: ETHANOL BLOOD 295 mg/dL
[2019-10-03 17:21] LABS: CLARITY URINE CLEAR (CLEAR); COLOR URINE YELLOW (YELLOW); KETONES URINE NEGATIVE (NEGATIVE); LEUKOCYTE ESTERASE URINE NEGATIVE (NEGATIVE); NITRITE URINE NEGATIVE (NEGATIVE); OCCULT BLOOD URINE NEGATIVE (NEGATIVE); PROTEIN URINE NEGATIVE (NEGATIVE); SPECIFIC GRAVITY URINE 1.011 (1.005-1.030); UROBILINOGEN URINE 0.2 E.U./dL (0.2-1.0)
[2019-10-03 17:33] LABS: *AMPHETAMINES SCREEN URINE NEGATIVE (NEGATIVE); *BARBITURATES SCREEN URINE NEGATIVE (NEGATIVE); *BENZODIAZEPINES SCREEN URINE PRESUMTIVE POSITIVE (NEGATIVE); *COCAINE SCREEN URINE NEGATIVE (NEGATIVE)
[2019-10-03 17:34] LABS: CANNABINOID URINE SCREEN NEGATIVE (NEGATIVE); METHADONE URINE SCREEN NEGATIVE (NEGATIVE); OPIATES URINE SCREEN NEGATIVE (NEGATIVE); PHENCYCLIDINE URINE SCREEN NEGATIVE (NEGATIVE)
[2019-10-03] MEDS ORDERED: ONDANSETRON HCL 4MG/2ML INJ IV ONE (17:45)
[2019-10-03] MEDS ORDERED: LORAZEPAM 2MG/ML CPJ IV ONE (17:45)
[2019-10-03] MEDS ORDERED: FOLIC ACID 1 MG, THIAMINE HCL 100 MG, MVI, ADULT NO.1 10 ML in DEXTROSE 5% WATER 1,000 ML IV SCH ×4 (18:30)
[2019-10-03 22:04] VITALS: BP 122/78
[2019-10-03] MEDS ORDERED: LORAZEPAM 2MG/ML CPJ IM PRN (23:30)
[2019-10-03] MEDS ORDERED: ONDANSETRON HCL 4MG/2ML INJ IV PRN (23:30)
[2019-10-04] VITALS (12 sets, daily range): BP systolic 100–146; BP diastolic 51–109
[2019-10-04] MEDS: DEXT 5%/0.45% NACL KCL 20MEQ/L 1,000 ML IV SCH ×3 (00:42→16:52)
[2019-10-04 08:03] LABS: HEMATOCRIT. 37.1 % (42.0-52.0); HEMOGLOBIN. 12.6 g/dL (14.0-18.0); MEAN CORPUSCULAR HEMOGLOBIN 33.9 pg (28.0-32.0); MEAN CORPUSCULAR VOLUME 99.9 fL (80.0-94.0); MEAN PLATELET VOLUME 9.9 fl (7.4-10.4); PLATELET 51 x1000/uL (130-400); RED BLOOD CELL COUNT 3.71 mill/uL (4.7-6.1); RED CELL DISTRIBUTION WIDTH 12.6 % (11.6-14.6)
[2019-10-04 08:28] LABS: CHLORIDE 105 mEq/L (98-107)
[2019-10-04] MEDS ORDERED: PANTOPRAZOLE SODIUM 40 MG/VIAL IV SCH (09:00)
[2019-10-04 13:19] LABS: PLATELET ESTIMATE DECREASED
[2019-10-04] MEDS: CHLORDIAZEPOXIDE 25MG CAPSULE PO SCH ×2 (15:52→22:00)
[2019-10-04] MEDS ORDERED: FOLIC ACID 1 MG, THIAMINE HCL 100 MG, MVI, ADULT NO.1 10 ML in DEXTROSE 5% WATER 1,000 ML IV SCH ×8 (18:00→20:00)
== END 2019-10-04 22:52 | disposition left against medical advice (07) | DRG 660 ==
LOC: ER 14:25 → 3WST 18:16 → EDBEDREQSVC 18:22 → EDBEDREQ 18:22 → ENRESERV 20:13
PROVIDERS: ADMIT Internal Medicine; ATTEND Internal Medicine
DX: D61.818 Other pancytopenia (principal); F10.129 Alcohol abuse with intoxication, unspecified; Z53.29 Procedure and treatment not carried out because of patient's decision for other reasons; K76.0 Fatty (change of) liver, not elsewhere classified; Y90.8 Blood alcohol level of 240 mg/100 ml or more; Z71.41 Alcohol abuse counseling and surveillance of alcoholic
CPT/HCPCS: 36415; 80048; 80053; 80305; 80320; 81003; 83735; 84100; 85025; 93005; 96365; 99291; C9113; J2060; J2405; J3411; J3490; J7030; J7070; G0480

== ENCOUNTER 2019-11-03 20:01 | Emergency (ER) | payer MEDICAID ==
[~2019-11-03] VITALS: Ht 180.3 cm; Wt 71.0 kg
[2019-11-03 23:54] LABS: BASOPHILS % 0.7 % (0.0-2.0); EOSINOPHILS % 0.3 % (0.0-5.0); HEMATOCRIT. 43.8 % (42.0-52.0); HEMOGLOBIN. 14.9 g/dL (14.0-18.0); LYMPHOCYTES % 36.7 % (20.0-50.0); MEAN CORPUSCULAR VOLUME 100.1 fL (80.0-94.0); MEAN PLATELET VOLUME 9.3 fl (7.4-10.4); MONOCYTES % 13.4 % (2.0-8.0); NEUTROPHILS % 48.9 % (40.0-76.0); RED BLOOD CELL COUNT 4.38 mill/uL (4.7-6.1); RED CELL DISTRIBUTION WIDTH 13.5 % (11.6-14.6)
[2019-11-04] LABS: CHLORIDE 102 mEq/L (98-107)
[2019-11-04 01:32] VITALS: BP 115/80
[2019-11-04 15:21] LABS: PLATELET 48 x1000/uL (130-400)
== END 2019-11-04 01:33 | disposition home or self-care (01) ==
LOC: ER 21:00
DX: D69.6 Thrombocytopenia, unspecified (principal); F10.20 Alcohol dependence, uncomplicated; Y90.0 Blood alcohol level of less than 20 mg/100 ml; F17.290 Nicotine dependence, other tobacco product, uncomplicated; Z79.899 Other long term (current) drug therapy
CPT/HCPCS: 36415; 80053; 85025; 99283; 99406

== ENCOUNTER 2019-11-04 10:22 | Emergency (ER) | payer MEDICAID ==
[~2019-11-04] VITALS: Ht 180.3 cm; Wt 70.0 kg
[2019-11-04] MEDS ORDERED: SODIUM CHLORIDE 0.9% 1,000 ML IV ONE (10:38)
[2019-11-04] MEDS ORDERED: FAMOTIDINE 20MG/2ML VIAL IV STA (10:38)
[2019-11-04 11:14] LABS: CHLORIDE 98 mEq/L (98-107); HEMATOCRIT. 43.9 % (42.0-52.0); HEMOGLOBIN. 14.8 g/dL (14.0-18.0); MEAN CORPUSCULAR HEMOGLOBIN 33.6 pg (28.0-32.0); MEAN CORPUSCULAR VOLUME 99.9 fL (80.0-94.0); MEAN PLATELET VOLUME 9.8 fl (7.4-10.4); RED CELL DISTRIBUTION WIDTH 13.3 % (11.6-14.6)
[2019-11-04 11:17] LABS: PLATELET 48 x1000/uL (130-400)
[2019-11-04 11:19] LABS: INR 1.1; PROTHROMBIN TIME 11.2 sec (9.6-11.0)
[2019-11-04 11:30] LABS: ETHANOL BLOOD < 10 mg/dL
[2019-11-04] MEDS ORDERED: CHLORDIAZEPOXIDE 25MG CAPSULE PO ONE (12:00)
[2019-11-04] MEDS ORDERED: LORAZEPAM 2MG/ML CPJ IV ONE (12:00)
[2019-11-04 13:55] LABS: ATYPICAL LYMPHOCYTES 1
[2019-11-04 13:56] LABS: PLATELET ESTIMATE MARKEDLY DECREASED
[2019-11-04 15:18] LABS: CLARITY URINE CLEAR (CLEAR); COLOR URINE YELLOW (YELLOW); KETONES URINE TRACE (NEGATIVE); LEUKOCYTE ESTERASE URINE NEGATIVE (NEGATIVE); NITRITE URINE NEGATIVE (NEGATIVE); OCCULT BLOOD URINE NEGATIVE (NEGATIVE); PROTEIN URINE NEGATIVE (NEGATIVE); SPECIFIC GRAVITY URINE 1.011 (1.005-1.030)
[2019-11-04 15:34] LABS: *BARBITURATES SCREEN URINE NEGATIVE (NEGATIVE); *BENZODIAZEPINES SCREEN URINE NEGATIVE (NEGATIVE); *COCAINE SCREEN URINE NEGATIVE (NEGATIVE); METHADONE URINE SCREEN NEGATIVE (NEGATIVE); OPIATES URINE SCREEN NEGATIVE (NEGATIVE)
[2019-11-04 15:35] LABS: *AMPHETAMINES SCREEN URINE NEGATIVE (NEGATIVE); CANNABINOID URINE SCREEN NEGATIVE (NEGATIVE); PHENCYCLIDINE URINE SCREEN NEGATIVE (NEGATIVE)
[2019-11-04 16:10] VITALS: BP 130/85
== END 2019-11-04 16:10 | disposition home or self-care (01) ==
LOC: ER 10:22
DX: F10.239 Alcohol dependence with withdrawal, unspecified (principal); D69.6 Thrombocytopenia, unspecified; F17.200 Nicotine dependence, unspecified, uncomplicated; R00.0 Tachycardia, unspecified; Y90.0 Blood alcohol level of less than 20 mg/100 ml
CPT/HCPCS: 36415; 80053; 80305; 80320; 81003; 83690; 85025; 85610; 93005; 96361; 96374; 96375; 99285; J2060; J3490; J7030; G0480

== ENCOUNTER 2019-11-05 05:43 | Inpatient (IN) | payer MEDICAID ==
[~2019-11-05] VITALS: Ht 180.3 cm; Wt 61.2 kg
[2019-11-05 06:53] LABS: CHLORIDE 99 mEq/L (98-107)
[2019-11-05 06:57] LABS: HEMATOCRIT. 42.1 % (42.0-52.0); HEMOGLOBIN. 14.4 g/dL (14.0-18.0); MEAN CORPUSCULAR HEMOGLOBIN 33.9 pg (28.0-32.0); MEAN CORPUSCULAR VOLUME 99.1 fL (80.0-94.0); MEAN PLATELET VOLUME 9.9 fl (7.4-10.4); RED BLOOD CELL COUNT 4.25 mill/uL (4.7-6.1); RED CELL DISTRIBUTION WIDTH 13.2 % (11.6-14.6)
[2019-11-05] MEDS ORDERED: ASPIRIN 81MG EC TABLET PO ONE (07:00)
[2019-11-05] MEDS ORDERED: LORAZEPAM 2MG/ML CPJ IV ONE (07:00)
[2019-11-05 07:02] LABS: PLATELET 40 x1000/uL (130-400)
[2019-11-05 07:36] LABS: PLATELET ESTIMATE DECREASED
[2019-11-05 16:00] VITALS: BP_SYST 122; BP_SYST 136; BP_DIAS 76; BP_DIAS 90
[2019-11-05] MEDS ORDERED: DOCUSATE SODIUM 100MG CAPSULE PO PRN (16:45)
[2019-11-05] MEDS ORDERED: MAGNESIUM/ALUMINUM HYDROXIDE/SIMETHICONE 30ML UDC PO PRN (16:45)
[2019-11-05] MEDS ORDERED: ACETAMINOPHEN 650MG/20.3ML UDC GT PRN ×2 (16:45)
[2019-11-05] MEDS ORDERED: CLONIDINE 0.1MG TABLET PO PRN (16:45)
[2019-11-05] MEDS ORDERED: ACETAMINOPHEN 325MG TABLET PO PRN (16:45)
[2019-11-05] MEDS ORDERED: NA PHOS,M-B/NA PHOS,DI-BA ENEMA 118ML PR PRN (16:45)
[2019-11-05] MEDS ORDERED: GUAIFENESIN 200MG/10ML SUGAR FREE UDC PO PRN (16:45)
[2019-11-05] MEDS ORDERED: DIPHENHYDRAMINE 50MG/ML VIAL IV PRN (16:45)
[2019-11-05] MEDS ORDERED: ACETAMINOPHEN 650MG SUPP PR PRN ×2 (16:45)
[2019-11-05 18:00] VITALS: BP 117/76
[2019-11-05 18:25] LABS: INR 1.1; PROTHROMBIN TIME 11.7 sec (9.6-11.0)
[2019-11-05 18:31] LABS: CREATINE KINASE 166 IU/L (39-308)
[2019-11-05 18:32] LABS: CREATINE KINASE MB FRACTION < 1.0 ng/mL (0.5-3.6)
[2019-11-05] MEDS ORDERED: NICOTINE 7MG PATCH TD SCH (19:00)
== END 2019-11-05 20:14 | disposition left against medical advice (07) | DRG 203 ==
LOC: ER 06:07 → 3WST 10:58 → EDBEDREQTM 11:03 → EDBEDREQ 11:03 → ENRESERV 13:27
PROVIDERS: ADMIT Family Medicine; ATTEND Family Medicine
DX: R07.89 Other chest pain (principal); F17.210 Nicotine dependence, cigarettes, uncomplicated; Z53.21 Procedure and treatment not carried out due to patient leaving prior to being seen by health care provider; D69.6 Thrombocytopenia, unspecified; F10.239 Alcohol dependence with withdrawal, unspecified
CPT/HCPCS: 36415; 71045; 80053; 80061; 82140; 82550; 82553; 83036; 83880; 84443; 84484; 85025; 93005; 99291; J2060

== ENCOUNTER 2020-06-09 21:03 | Emergency (ER) | payer MEDICAID ==
[~2020-06-09] VITALS: Ht 180.3 cm; Wt 56.0 kg
[2020-06-09] MEDS ORDERED: LORAZEPAM 1MG TABLET PO ONE (22:30)
[2020-06-09 22:58] LABS: HEMATOCRIT. 42.4 % (42.0-52.0); HEMOGLOBIN. 14.9 g/dL (14.0-18.0); MEAN CORPUSCULAR HEMOGLOBIN 34.7 pg (28.0-32.0); MEAN CORPUSCULAR VOLUME 98.9 fL (80.0-94.0); MEAN PLATELET VOLUME 8.7 fl (7.4-10.4); PLATELET 74 x1000/uL (130-400); RED BLOOD CELL COUNT 4.29 mill/uL (4.7-6.1); RED CELL DISTRIBUTION WIDTH 12.7 % (11.6-14.6)
[2020-06-09 23:07] LABS: CHLORIDE 105 mEq/L (98-107)
[2020-06-09 23:13] LABS: ETHANOL BLOOD 129 mg/dL
[2020-06-09 23:30] LABS: *AMPHETAMINES SCREEN URINE NEGATIVE (NEGATIVE); *BARBITURATES SCREEN URINE NEGATIVE (NEGATIVE); *BENZODIAZEPINES SCREEN URINE NEGATIVE (NEGATIVE); *COCAINE SCREEN URINE NEGATIVE (NEGATIVE)
[2020-06-09 23:31] LABS: CANNABINOID URINE SCREEN NEGATIVE (NEGATIVE); METHADONE URINE SCREEN NEGATIVE (NEGATIVE); OPIATES URINE SCREEN NEGATIVE (NEGATIVE); PHENCYCLIDINE URINE SCREEN NEGATIVE (NEGATIVE)
[2020-06-10 00:53] LABS: PLATELET ESTIMATE DECREASED
[2020-06-10 03:00] VITALS: BP 128/77
== END 2020-06-10 03:36 | disposition home or self-care (01) ==
LOC: ER 21:03
DX: T51.0X1A Toxic effect of ethanol, accidental (unintentional), initial encounter (principal); R07.89 Other chest pain; K76.9 Liver disease, unspecified; Y90.6 Blood alcohol level of 120-199 mg/100 ml; Y92.018 Other place in single-family (private) house as the place of occurrence of the external cause
CPT/HCPCS: 36415; 71045; 80053; 80305; 80320; 84484; 85025; 93005; 99285; G0480

== ENCOUNTER 2020-07-08 15:01 | Emergency (ER) | payer MEDICAID ==
[~2020-07-08] VITALS: Ht 180.3 cm; Wt 73.0 kg
[2020-07-08 15:05] VITALS: BP 151/104
[2020-07-08 16:43] LABS: HEMATOCRIT. 43.1 % (42.0-52.0); HEMOGLOBIN. 14.5 g/dL (14.0-18.0); MEAN CORPUSCULAR HEMOGLOBIN 33.9 pg (28.0-32.0); MEAN CORPUSCULAR VOLUME 100.6 fL (80.0-94.0); MEAN PLATELET VOLUME 9.7 fl (7.4-10.4); PLATELET 72 x1000/uL (130-400); RED BLOOD CELL COUNT 4.28 mill/uL (4.7-6.1); RED CELL DISTRIBUTION WIDTH 12.7 % (11.6-14.6)
[2020-07-08 16:49] LABS: CHLORIDE 101 mEq/L (98-107)
[2020-07-08 16:52] LABS: ETHANOL BLOOD 12 mg/dL
[2020-07-08 17:04] LABS: PLATELET ESTIMATE DECREASED
== END 2020-07-08 18:22 | disposition home or self-care (01) ==
LOC: ER 15:01
DX: R07.89 Other chest pain (principal); K70.9 Alcoholic liver disease, unspecified; E87.1 Hypo-osmolality and hyponatremia
CPT/HCPCS: 36415; 71045; 80048; 80320; 84484; 85025; 93005; 99285; G0480

== ENCOUNTER 2020-07-25 18:20 | Emergency (ER) | payer MEDICAID ==
[~2020-07-25] VITALS: Ht 180.3 cm; Wt 71.0 kg
[2020-07-25 19:18] LABS: BASOPHILS % 1.3 % (0.0-2.0); EOSINOPHILS % 2.5 % (0.0-5.0); HEMATOCRIT. 42.7 % (42.0-52.0); HEMOGLOBIN. 14.7 g/dL (14.0-18.0); LYMPHOCYTES % 49.2 % (20.0-50.0); MEAN CORPUSCULAR HEMOGLOBIN 34.4 pg (28.0-32.0); MEAN CORPUSCULAR VOLUME 100.2 fL (80.0-94.0); PLATELET 83 x1000/uL (130-400); RED BLOOD CELL COUNT 4.26 mill/uL (4.7-6.1); RED CELL DISTRIBUTION WIDTH 12.8 % (11.6-14.6)
[2020-07-25 19:28] LABS: CHLORIDE 99 mEq/L (98-107)
[2020-07-25 19:32] LABS: ETHANOL BLOOD 136 mg/dL
[2020-07-25] MEDS ORDERED: SODIUM CHLORIDE 0.9% 1,000 ML IV ONE (22:00)
[2020-07-25] MEDS ORDERED: POTASSIUM CHLORIDE 20MEQ TABLET SR PO ONE (23:00)
[2020-07-25] MEDS ORDERED: MAGNESIUM/ALUMINUM HYDROXIDE/SIMETHICONE 30ML UDC PO STA (23:16)
[2020-07-25] MEDS ORDERED: VISCOUS LIDOCAINE 2% 15 ML UDC PO STA (23:16)
[2020-07-25] MEDS ORDERED: MAG-55 MT (23:29)
[2020-07-25 23:47] VITALS: BP 129/87
== END 2020-07-26 00:08 | disposition home or self-care (01) ==
LOC: ER 18:20
DX: F10.229 Alcohol dependence with intoxication, unspecified (principal); R07.89 Other chest pain; E87.6 Hypokalemia; D69.6 Thrombocytopenia, unspecified; R06.6 Hiccough; K70.9 Alcoholic liver disease, unspecified; Y90.6 Blood alcohol level of 120-199 mg/100 ml; Z71.41 Alcohol abuse counseling and surveillance of alcoholic
CPT/HCPCS: 36415; 80053; 80320; 84484; 85025; 93005; 96360; 99284; J7030; Z7610; G0480

== ENCOUNTER 2021-09-01 06:35 | Emergency (ER) | payer MEDICAID ==
[~2021-09-01] VITALS: Ht 180.3 cm; Wt 68.0 kg
[~2021-09-01 06:35] MED LIST changes: +MAG-55 MT
[2021-09-01] MEDS ORDERED: FOLIC ACID 1 MG, THIAMINE HCL 100 MG, MVI, ADULT NO.1 10 ML in DEXTROSE 5% WATER 1,000 ML IV ONE ×4 (07:30)
[2021-09-01 08:24] LABS: BASOPHILS % 0.7 % (0.0-2.0); EOSINOPHILS % 0.3 % (0.0-5.0); HEMOGLOBIN. 15.3 g/dL (14.0-18.0); LYMPHOCYTES % 33.4 % (20.0-50.0); MEAN CORPUSCULAR HEMOGLOBIN 33.9 pg (28.0-32.0); MEAN CORPUSCULAR VOLUME 99.6 fL (80.0-94.0); MONOCYTES % 13.3 % (2.0-8.0); NEUTROPHILS % 52.3 % (40.0-76.0); PLATELET 80 x1000/uL (130-400); RED BLOOD CELL COUNT 4.52 mill/uL (4.7-6.1); RED CELL DISTRIBUTION WIDTH 13.1 % (11.6-14.6)
[2021-09-01 08:32] LABS: CHLORIDE 99 mEq/L (98-107)
[2021-09-01 08:38] LABS: ETHANOL BLOOD < 10 mg/dL
[2021-09-01] MEDS ORDERED: CHLORDIAZEPOXIDE 25MG CAPSULE PO ONE (12:00)
[2021-09-01 12:02] LABS: CLARITY URINE CLEAR (CLEAR); COLOR URINE DARK YELLOW (YELLOW); KETONES URINE 2+ (NEGATIVE); LEUKOCYTE ESTERASE URINE TRACE (NEGATIVE); NITRITE URINE NEGATIVE (NEGATIVE); OCCULT BLOOD URINE NEGATIVE (NEGATIVE); PROTEIN URINE TRACE (NEGATIVE); SPECIFIC GRAVITY URINE 1.024 (1.005-1.030)
[2021-09-01] MEDS ORDERED: L25 MT (12:18)
[2021-09-01] MEDS ORDERED: CHLO25CA10 MT (12:24)
[2021-09-01] MEDS ORDERED: L10 MT (12:42)
[2021-09-01 16:44] VITALS: BP 149/84
== END 2021-09-01 16:52 | disposition home or self-care (01) ==
LOC: ER 06:35
DX: F10.239 Alcohol dependence with withdrawal, unspecified (principal); Y90.0 Blood alcohol level of less than 20 mg/100 ml; R79.89 Other specified abnormal findings of blood chemistry; D72.819 Decreased white blood cell count, unspecified; D69.6 Thrombocytopenia, unspecified; F17.290 Nicotine dependence, other tobacco product, uncomplicated; Z79.899 Other long term (current) drug therapy
CPT/HCPCS: 36415; 70450; 80053; 80320; 81003; 83735; 84484; 85025; 93005; 96365; 99285; J3411; J3490; J7070; G0480

== ENCOUNTER 2021-09-03 01:16 | Emergency (ER) | payer MEDICAID ==
[~2021-09-03] VITALS: Ht 180.3 cm; Wt 71.0 kg
[~2021-09-03 01:16] MED LIST changes: +CHLO25CA10 MT; +L10 MT
[2021-09-03] MEDS ORDERED: KETOROLAC 60MG/2ML VIAL IM ONE (02:00)
[2021-09-03] MEDS ORDERED: OXYCODONE HCL/ACETAMINOPHEN 5/325MG TABLET PO ONE (02:00)
[2021-09-03] MEDS ORDERED: CHLORDIAZEPOXIDE 25MG CAPSULE PO ONE (02:15)
[2021-09-03] MEDS ORDERED: IBUP-2028 PO (02:45)
[2021-09-03 02:48] VITALS: BP 130/74
== END 2021-09-03 02:58 ==
LOC: ER 01:16
DX: M54.50 Low back pain, unspecified (principal); F10.229 Alcohol dependence with intoxication, unspecified; Y90.0 Blood alcohol level of less than 20 mg/100 ml; Z79.899 Other long term (current) drug therapy
CPT/HCPCS: 72100; 93005; 96372; 99283; J1885

== ENCOUNTER 2021-09-30 12:10 | Emergency (ER) | payer MEDICAID ==
[~2021-09-30] VITALS: Ht 180.3 cm; Wt 66.0 kg
[~2021-09-30 12:10] MED LIST changes: +IBUP-2028 PO
[2021-09-30 14:40] LABS: BASOPHILS % 0.4 % (0.0-2.0); EOSINOPHILS % 0.1 % (0.0-5.0); HEMATOCRIT. 45.8 % (42.0-52.0); HEMOGLOBIN. 15.1 g/dL (14.0-18.0); LYMPHOCYTES % 22.6 % (20.0-50.0); MEAN CORPUSCULAR HEMOGLOBIN 33.7 pg (28.0-32.0); MEAN CORPUSCULAR VOLUME 101.9 fL (80.0-94.0); MEAN PLATELET VOLUME 9.1 fl (7.4-10.4); MONOCYTES % 11.4 % (2.0-8.0); NEUTROPHILS % 65.5 % (40.0-76.0); PLATELET 68 x1000/uL (130-400); RED BLOOD CELL COUNT 4.49 mill/uL (4.7-6.1); RED CELL DISTRIBUTION WIDTH 13.1 % (11.6-14.6)
[2021-09-30 14:43] LABS: CHLORIDE 98 mEq/L (98-107)
[2021-09-30 14:52] LABS: ETHANOL BLOOD < 10 mg/dL
[2021-09-30 15:57] LABS: *AMPHETAMINES SCREEN URINE NEGATIVE (NEGATIVE); *BARBITURATES SCREEN URINE NEGATIVE (NEGATIVE); *BENZODIAZEPINES SCREEN URINE NEGATIVE (NEGATIVE); *COCAINE SCREEN URINE NEGATIVE (NEGATIVE); CANNABINOID URINE SCREEN NEGATIVE (NEGATIVE); METHADONE URINE SCREEN NEGATIVE (NEGATIVE); OPIATES URINE SCREEN NEGATIVE (NEGATIVE); PHENCYCLIDINE URINE SCREEN NEGATIVE (NEGATIVE)
[2021-09-30] MEDS ORDERED: SODIUM CHLORIDE 0.9% 1,000 ML IV ONE (16:30)
[2021-09-30] MEDS ORDERED: DIAZEPAM 5 MG/ML 2ML CPJ IV ONE (16:30)
[2021-09-30 16:49] LABS: CLARITY URINE CLEAR (CLEAR); COLOR URINE DARK YELLOW (YELLOW); KETONES URINE 1+ (NEGATIVE); LEUKOCYTE ESTERASE URINE NEGATIVE (NEGATIVE); NITRITE URINE NEGATIVE (NEGATIVE); OCCULT BLOOD URINE 1+ (NEGATIVE); PROTEIN URINE TRACE (NEGATIVE); SPECIFIC GRAVITY URINE 1.016 (1.005-1.030)
[2021-09-30] MEDS ORDERED: FOLIC ACID 1 MG, THIAMINE HCL 100 MG, MVI, ADULT NO.1 10 ML in DEXTROSE 5% WATER 1,000 ML IV ONE ×4 (19:15)
[2021-09-30 21:17] VITALS: BP 108/65
== END 2021-09-30 21:25 | disposition home or self-care (01) ==
LOC: ER 12:23
DX: F10.239 Alcohol dependence with withdrawal, unspecified (principal); F10.229 Alcohol dependence with intoxication, unspecified; Y90.0 Blood alcohol level of less than 20 mg/100 ml
CPT/HCPCS: 36415; 80053; 80305; 80307; 80320; 80329; 81003; 85025; 96361; 96365; 96375; 99284; J3360; J3411; J3490; J7030; J7070; G0480

== ENCOUNTER 2021-11-24 22:40 | Emergency (ER) | payer MEDICAID ==
[~2021-11-24] VITALS: Ht 180.3 cm; Wt 64.0 kg
[2021-11-25] MEDS ORDERED: CHLORDIAZEPOXIDE 25MG CAPSULE PO ONE (00:30)
[2021-11-25 02:00] VITALS: BP 128/78
[2021-11-25] MEDS ORDERED: L25 MT (02:57)
== END 2021-11-25 06:05 | disposition home or self-care (01) ==
LOC: ER 22:40
DX: F10.239 Alcohol dependence with withdrawal, unspecified (principal); F10.20 Alcohol dependence, uncomplicated; Y90.0 Blood alcohol level of less than 20 mg/100 ml
CPT/HCPCS: 99283

== ENCOUNTER 2022-04-02 08:54 | Emergency (ER) | payer MEDICAID ==
[~2022-04-02] VITALS: Ht 180.3 cm; Wt 66.0 kg
[2022-04-02 09:01] VITALS: BP 146/81
[2022-04-02] MEDS ORDERED: ONDANSETRON 4MG ODT PO ONE (09:45)
[2022-04-02] MEDS ORDERED: CHLORDIAZEPOXIDE 25MG CAPSULE PO ONE (09:45)
[2022-04-02] MEDS ORDERED: L25 MT (10:39)
[2022-04-02] MEDS ORDERED: CHLORDIAZEPOXIDE 25MG CAPSULE PO NR (11:00)
[2022-04-02] MEDS ORDERED: MAGNESIUM/ALUMINUM HYDROXIDE/SIMETHICONE 30ML UDC PO ONE (11:30)
[2022-04-02 12:08] LABS: BASOPHILS % 0.5 % (0.0-2.0); EOSINOPHILS % 0.2 % (0.0-5.0); HEMATOCRIT. 43.8 % (42.0-52.0); HEMOGLOBIN. 14.7 g/dL (14.0-18.0); LYMPHOCYTES % 37.6 % (20.0-50.0); MEAN CORPUSCULAR VOLUME 97.9 fL (80.0-94.0); MEAN PLATELET VOLUME 8.5 fl (7.4-10.4); MONOCYTES % 12.6 % (2.0-8.0); NEUTROPHILS % 49.1 % (40.0-76.0); PLATELET 121 x1000/uL (130-400); RED BLOOD CELL COUNT 4.47 mill/uL (4.7-6.1); RED CELL DISTRIBUTION WIDTH 12.8 % (11.6-14.6)
[2022-04-02 12:14] LABS: CHLORIDE 102 mEq/L (98-107)
[2022-04-02 12:25] LABS: ETHANOL BLOOD < 10 mg/dL
== END 2022-04-02 11:07 | disposition home or self-care (01) ==
LOC: ER 08:54
DX: F10.239 Alcohol dependence with withdrawal, unspecified (principal); Y90.0 Blood alcohol level of less than 20 mg/100 ml; Z79.899 Other long term (current) drug therapy
CPT/HCPCS: 36415; 80053; 80320; 85025; 99284; Q0162; G0480

== ENCOUNTER 2022-04-13 16:54 | Emergency (ER) | payer MEDICAID ==
[~2022-04-13] VITALS: Ht 180.3 cm; Wt 64.0 kg
[2022-04-13 17:17] VITALS: BP 121/94
[2022-04-13] MEDS ORDERED: ONDANSETRON HCL 4MG/2ML INJ IV STA (17:18)
[2022-04-13] MEDS ORDERED: FOLIC ACID 1 MG, THIAMINE HCL 100 MG, MVI, ADULT NO.1 10 ML in DEXTROSE 5% WATER 1,000 ML IV ONE ×4 (17:30)
[2022-04-13] MEDS ORDERED: FOLIC ACID 1 MG, THIAMINE HCL 100 MG, MVI, ADULT NO.1 10 ML in DEXTROSE 5% WATER 988.8 ML IV NR ×4 (17:30)
[2022-04-13] MEDS ORDERED: FAMOTIDINE 20MG/2ML VIAL IV ONE (17:30)
[2022-04-13] MEDS ORDERED: SODIUM CHLORIDE 0.9% 1,000 ML IV ONE (17:30)
[2022-04-13 18:44] LABS: BASOPHILS % 0.6 % (0.0-2.0); EOSINOPHILS % 0.3 % (0.0-5.0); HEMATOCRIT. 43.6 % (42.0-52.0); HEMOGLOBIN. 14.6 g/dL (14.0-18.0); LYMPHOCYTES % 29.6 % (20.0-50.0); MEAN CORPUSCULAR HEMOGLOBIN 33.1 pg (28.0-32.0); MEAN CORPUSCULAR VOLUME 99.1 fL (80.0-94.0); MEAN PLATELET VOLUME 8.6 fl (7.4-10.4); MONOCYTES % 12.4 % (2.0-8.0); NEUTROPHILS % 57.1 % (40.0-76.0); PLATELET 109 x1000/uL (130-400); RED CELL DISTRIBUTION WIDTH 13.8 % (11.6-14.6)
[2022-04-13] MEDS ORDERED: LORAZEPAM 2MG/ML CPJ IV ONE (19:00)
[2022-04-13 19:02] LABS: CHLORIDE 100 mEq/L (98-107)
[2022-04-13 19:11] LABS: ETHANOL BLOOD < 10 mg/dL
[2022-04-13] MEDS ORDERED: LORAZEPAM 1MG TABLET PO ONE (23:00)
[2022-04-14] MEDS ORDERED: VISCOUS LIDOCAINE 2% 15 ML UDC PO STA (00:09)
[2022-04-14] MEDS ORDERED: MAGNESIUM/ALUMINUM HYDROXIDE/SIMETHICONE 30ML UDC PO STA (00:09)
[2022-04-14] MEDS ORDERED: FAMO-135 MT (00:13)
[2022-04-14] MEDS ORDERED: ONDA4TAB50 MT (00:13)
[2022-04-14] MEDS ORDERED: MAG-55 MT (00:13)
[2022-04-14] MEDS ORDERED: L25 MT (00:13)
[2022-04-14] MEDS ORDERED: CHLORDIAZEPOXIDE 25MG CAPSULE PO ONE (00:15)
== END 2022-04-14 06:52 | disposition home or self-care (01) ==
LOC: ER 16:54
DX: F10.239 Alcohol dependence with withdrawal, unspecified (principal); Y90.0 Blood alcohol level of less than 20 mg/100 ml; K29.20 Alcoholic gastritis without bleeding; Z79.899 Other long term (current) drug therapy
CPT/HCPCS: 36415; 80053; 80320; 83690; 84484; 85025; 93005; 96360; 96361; 99284; J7030; J3411; J3490; J7070; G0480

== ENCOUNTER 2022-05-20 01:52 | Emergency (ER) | payer MEDICAID ==
[~2022-05-20] VITALS: Ht 180.3 cm; Wt 63.8 kg
[~2022-05-20 01:52] MED LIST changes: +FAMO-135 MT; +ONDA4TAB50 MT
[2022-05-20 05:20] VITALS: BP 159/96
[2022-05-20] MEDS ORDERED: MAGNESIUM/ALUMINUM HYDROXIDE/SIMETHICONE 30ML UDC PO ONE (05:30)
[2022-05-20] MEDS ORDERED: CHLORDIAZEPOXIDE 25MG CAPSULE PO ONE (05:30)
[2022-05-20] MEDS ORDERED: FAMOTIDINE 20MG TABLET PO ONE (05:30)
[2022-05-20] MEDS ORDERED: MAG-55 MT (05:36)
[2022-05-20] MEDS ORDERED: FAMO40TA70 MT (05:36)
[2022-05-20] MEDS ORDERED: CHLO25CA10 PO (05:36)
[2022-05-20] MEDS ORDERED: ONDANSETRON 4MG ODT PO ONE (05:45)
== END 2022-05-20 05:54 | disposition home or self-care (01) ==
LOC: ER 01:52
DX: F10.239 Alcohol dependence with withdrawal, unspecified (principal); Y90.9 Presence of alcohol in blood, level not specified; R03.0 Elevated blood-pressure reading, without diagnosis of hypertension
CPT/HCPCS: 99282; Q0162; Z7610

== ENCOUNTER 2022-06-23 01:18 | Inpatient (IN) | payer MEDICAID ==
[~2022-06-23] VITALS: Ht 180.3 cm; Wt 68.5 kg
[~2022-06-23 01:18] MED LIST changes: +CHLO25CA10 PO; +FAMO40TA70 MT
[2022-06-23] MEDS ORDERED: MAGNESIUM/ALUMINUM HYDROXIDE/SIMETHICONE 30ML UDC PO STA (05:20)
[2022-06-23] MEDS ORDERED: FAMOTIDINE 20MG TABLET PO ONE (05:30)
[2022-06-23 05:59] LABS: BASOPHILS % 0.2 % (0.0-2.0); EOSINOPHILS % 0.5 % (0.0-5.0); HEMATOCRIT. 41.3 % (42.0-52.0); HEMOGLOBIN. 14.2 g/dL (14.0-18.0); LYMPHOCYTES % 46.7 % (20.0-50.0); MEAN CORPUSCULAR HEMOGLOBIN 34.9 pg (28.0-32.0); MEAN CORPUSCULAR VOLUME 101.5 fL (80.0-94.0); MEAN PLATELET VOLUME 8.5 fl (7.4-10.4); MONOCYTES % 8.3 % (2.0-8.0); NEUTROPHILS % 44.3 % (40.0-76.0); PLATELET 129 x1000/uL (130-400); RED BLOOD CELL COUNT 4.07 mill/uL (4.7-6.1); RED CELL DISTRIBUTION WIDTH 13.1 % (11.6-14.6)
[2022-06-23 06:08] LABS: CHLORIDE 100 mEq/L (98-107)
[2022-06-23 06:15] LABS: ETHANOL BLOOD 121 mg/dL
[2022-06-23] MEDS ORDERED: FOLIC ACID 1 MG, THIAMINE HCL 100 MG, MVI, ADULT NO.1 10 ML in DEXTROSE 5% WATER 1,000 ML IV ONE ×8 (06:30→07:00)
[2022-06-23] MEDS ORDERED: CHLORDIAZEPOXIDE 25MG CAPSULE PO ONE (06:30)
[2022-06-23] MEDS ORDERED: CHLORDIAZEPOXIDE 25MG CAPSULE PO NR (09:15)
[2022-06-23 15:10] VITALS: BP 171/92
[2022-06-23 16:00] VITALS: BP 142/72
[2022-06-23] MEDS ORDERED: LORAZEPAM 2MG/ML CPJ IV PRN (16:15)
[2022-06-23] MEDS ORDERED: ACETAMINOPHEN 325MG TABLET PO PRN (16:15)
[2022-06-23] MEDS ORDERED: ONDANSETRON HCL 4MG/2ML INJ IV PRN (16:15)
[2022-06-23] MEDS: ENOXAPARIN 40MG/0.4ML SYR SUBCUT SCH (16:30)
[2022-06-23 20:00] VITALS: BP 142/89
[2022-06-23 21:21] LABS: HEPATITIS B SURFACE ANTIGEN REACTIVE PEND CONFIR
[2022-06-23] MEDS: CHLORDIAZEPOXIDE 25MG CAPSULE PO SCH (22:31)
[2022-06-24] VITALS: BP 137/86
[2022-06-24] MEDS: CHLORDIAZEPOXIDE 25MG CAPSULE PO SCH ×3 (06:24→21:29)
[2022-06-24 07:07] LABS: BASOPHILS % 0.5 % (0.0-2.0); EOSINOPHILS % 1.4 % (0.0-5.0); HEMATOCRIT. 42.3 % (42.0-52.0); HEMOGLOBIN. 14.7 g/dL (14.0-18.0); LYMPHOCYTES % 33.4 % (20.0-50.0); MEAN CORPUSCULAR HEMOGLOBIN 35.3 pg (28.0-32.0); MEAN PLATELET VOLUME 9.3 fl (7.4-10.4); MONOCYTES % 10.4 % (2.0-8.0); NEUTROPHILS % 54.3 % (40.0-76.0); PLATELET 110 x1000/uL (130-400); RED BLOOD CELL COUNT 4.15 mill/uL (4.7-6.1); RED CELL DISTRIBUTION WIDTH 12.7 % (11.6-14.6)
[2022-06-24 07:24] LABS: CHLORIDE 99 mEq/L (98-107)
[2022-06-24 08:00] VITALS: BP 137/89
[2022-06-24] MEDS ORDERED: MVI, ADULT NO.1 10 ML, FOLIC ACID 1 MG, THIAMINE HCL 100 MG in SODIUM CHLORIDE 0.9% 1,0... IV SCH ×4 (09:00)
[2022-06-24 12:00] VITALS: BP 128/88
[2022-06-24 16:00] VITALS: BP 130/80
[2022-06-24] MEDS: ENOXAPARIN 40MG/0.4ML SYR SUBCUT SCH (16:24)
[2022-06-28 14:11] LABS: HBSAG CONFIRMATION Positive (.); HBSAG SCREEN Confirm. indicated (Negative)
== END 2022-06-25 05:25 | disposition left against medical advice (07) | DRG 770 ==
LOC: ER 01:18 → 6EST 09:06
PROVIDERS: ADMIT Internal Medicine; ATTEND Internal Medicine
DX: F10.239 Alcohol dependence with withdrawal, unspecified (principal); Z53.29 Procedure and treatment not carried out because of patient's decision for other reasons; Y90.6 Blood alcohol level of 120-199 mg/100 ml
CPT/HCPCS: 36415; 80053; 80320; 85025; 86803; 87340; 93005; 99285; J1650; J3411; J3490; J7030; J7070; G0480

== ENCOUNTER 2022-10-01 18:05 | Emergency (ER) | payer MEDICAID ==
[~2022-10-01] VITALS: Ht 172.7 cm; Wt 72.0 kg
[2022-10-01 18:14] VITALS: BP 141/92; PULSE 99; RESP 18; TEMP 97.9; O2SAT 100
== END 2022-10-02 00:59 | disposition left against medical advice (07) ==
LOC: ER 18:07
DX: Z53.21 Procedure and treatment not carried out due to patient leaving prior to being seen by health care provider (principal)
CPT/HCPCS: 99281

== ENCOUNTER 2022-10-03 17:34 | Emergency (ER) | payer MEDICAID, OTHER ==
[~2022-10-03] VITALS: Ht 180.3 cm; Wt 69.0 kg
[2022-10-03 17:46] VITALS: O2SAT 97
[2022-10-03 20:11] LABS: BASOPHILS % 0.7 % (0.0-2.0); EOSINOPHILS % 0.3 % (0.0-5.0); HEMATOCRIT. 43.1 % (42.0-52.0); HEMOGLOBIN. 14.3 g/dL (14.0-18.0); LYMPHOCYTES % 41.7 % (20.0-50.0); MEAN CORPUSCULAR HEMOGLOBIN 33.2 pg (28.0-32.0); MEAN CORPUSCULAR HGB CONC 33.2 g/dL (31.0-37.0); MEAN CORPUSCULAR VOLUME 99.9 fL (80.0-94.0); MEAN PLATELET VOLUME 8.5 fl (7.4-10.4); MONOCYTES % 9.9 % (2.0-8.0); NEUTROPHILS % 47.4 % (40.0-76.0); PLATELET 148 x1000/uL (130-400); RED BLOOD CELL COUNT 4.31 mill/uL (4.7-6.1); RED CELL DISTRIBUTION WIDTH 13.9 % (11.6-14.6); WHITE BLOOD COUNT 5.4 x1000/uL (4.5-11.0)
[2022-10-03 20:31] LABS: CHLORIDE 103 mEq/L (98-107); INDEX HEMOLYSI 1 (1-3); INDEX ICTERIC 1 (1-4); INDEX LIPEMIC 1 (1-3); POTASSIUM 3.7 mEq/L (3.5-5.1); SODIUM 135 mEq/L (136-145)
[2022-10-03 20:40] LABS: ALANINE AMINOTRANSFERASE 50 IU/L (13-61); ALBUMIN 3.8 g/dL (3.4-5.0); ASPARTATE AMINOTRANSFERASE 62 IU/L (15-37); BILIRUBIN TOTAL 1.2 mg/dL (0.1-1.0); CALCIUM 8.8 mg/dL (8.5-10.1); CARBON DIOXIDE 22 mEq/L (21-32); CREATININE 0.9 mg/dL (0.6-1.3); ETHANOL BLOOD 15 mg/dL (-10); GLUCOSE 81 mg/dL (70-105); PROTEIN TOTAL 8.4 g/dL (6.0-8.3); UREA NITROGEN BLOOD 15 mg/dL (7-21)
[2022-10-03] MEDS ORDERED: FOLIC ACID 1MG TABLET PO SCH (22:00)
[2022-10-03] MEDS ORDERED: SODIUM CHLORIDE 0.9% 100 ML IV ONE (22:00)
[2022-10-03] MEDS ORDERED: THIAMINE HCL 100MG TABLET PO ONE (22:00)
[2022-10-03] MEDS ORDERED: KETOROLAC 30MG/ML VIAL IV ONE (23:15)
[2022-10-04] MEDS ORDERED: CHLO25CA10 MT (01:10)
[2022-10-04 02:10] VITALS: BP 145/85; PULSE 66; RESP 15; TEMP 98.7
== END 2022-10-04 02:14 | disposition home or self-care (01) ==
LOC: ER 17:34
DX: F10.239 Alcohol dependence with withdrawal, unspecified (principal); F10.229 Alcohol dependence with intoxication, unspecified; Z79.899 Other long term (current) drug therapy; Y90.0 Blood alcohol level of less than 20 mg/100 ml
CPT/HCPCS: 80053; 80320; 85025; 36415; 96361; 96374; 99283; J1885; J7050; Z7610 ×2; G0480

== ENCOUNTER 2022-10-26 12:58 | Emergency (ER) | payer OTHER ==
[~2022-10-26] VITALS: Ht 180.3 cm; Wt 69.0 kg
[2022-10-26 13:14] VITALS: O2SAT 100
[2022-10-26] MEDS ORDERED: CHLORDIAZEPOXIDE 25MG CAPSULE PO ONE (13:30)
[2022-10-26 14:10] LABS: BASOPHILS % 0.5 % (0.0-2.0); EOSINOPHILS % 0.1 % (0.0-5.0); HEMATOCRIT. 43.9 % (42.0-52.0); HEMOGLOBIN. 14.5 g/dL (14.0-18.0); LYMPHOCYTES % 28.7 % (20.0-50.0); MEAN CORPUSCULAR HEMOGLOBIN 33.1 pg (28.0-32.0); MEAN CORPUSCULAR HGB CONC 33.1 g/dL (31.0-37.0); MONOCYTES % 12.2 % (2.0-8.0); NEUTROPHILS % 58.5 % (40.0-76.0); PLATELET 109 x1000/uL (130-400); RED BLOOD CELL COUNT 4.39 mill/uL (4.7-6.1); RED CELL DISTRIBUTION WIDTH 14.2 % (11.6-14.6); WHITE BLOOD COUNT 4.1 x1000/uL (4.5-11.0)
[2022-10-26 14:26] LABS: CHLORIDE 106 mEq/L (98-107); INDEX HEMOLYSI 1 (1-3); INDEX ICTERIC 1 (1-4); INDEX LIPEMIC 1 (1-3); SODIUM 135 mEq/L (136-145)
[2022-10-26 14:33] LABS: ALBUMIN 3.8 g/dL (3.4-5.0); ASPARTATE AMINOTRANSFERASE 81 IU/L (15-37); BILIRUBIN TOTAL 0.6 mg/dL (0.1-1.0); CARBON DIOXIDE 27 mEq/L (21-32); CREATININE 1.2 mg/dL (0.6-1.3); ETHANOL BLOOD < 10 mg/dL (-10); GLUCOSE 97 mg/dL (70-105); PROTEIN TOTAL 8.5 g/dL (6.0-8.3); UREA NITROGEN BLOOD 13 mg/dL (7-21)
[2022-10-26 15:14] LABS: ALANINE AMINOTRANSFERASE 63 IU/L (13-61)
[2022-10-26] MEDS: CHLORDIAZEPOXIDE 25MG CAPSULE PO NR ×2 (15:15→16:05)
[2022-10-26] MEDS ORDERED: L25 MT (15:21)
[2022-10-26 16:16] VITALS: BP 133/85; PULSE 77; RESP 19; TEMP 97.9
== END 2022-10-26 16:17 | disposition home or self-care (01) ==
LOC: ER 13:16
DX: F10.20 Alcohol dependence, uncomplicated (principal); Z79.899 Other long term (current) drug therapy
CPT/HCPCS: 36415; 80053; 80320; 85025; 99283; G0480

== ENCOUNTER 2022-11-27 06:46 | Inpatient (IN) | payer OTHER ==
[~2022-11-27] VITALS: Ht 215.9 cm; Wt 72.6 kg
[2022-11-27] MEDS ORDERED: ONDANSETRON HCL 4MG/2ML INJ IV STA (07:01)
[2022-11-27] MEDS ORDERED: LORAZEPAM 2MG/ML CPJ IV ONE (07:15)
[2022-11-27] MEDS ORDERED: CHLORDIAZEPOXIDE 25MG CAPSULE PO ONE (07:15)
[2022-11-27] MEDS ORDERED: FOLIC ACID 1 MG, THIAMINE HCL 100 MG, MVI, ADULT NO.1 10 ML in DEXTROSE 5% WATER 1,000 ML IV ONE ×4 (07:15)
[2022-11-27 07:35] LABS: BASOPHILS % 0.8 % (0.0-2.0); EOSINOPHILS % 4.3 % (0.0-5.0); HEMATOCRIT. 45.6 % (42.0-52.0); HEMOGLOBIN. 15.2 g/dL (14.0-18.0); LYMPHOCYTES % 47.2 % (20.0-50.0); MEAN CORPUSCULAR HEMOGLOBIN 33.1 pg (28.0-32.0); MEAN CORPUSCULAR HGB CONC 33.3 g/dL (31.0-37.0); MEAN CORPUSCULAR VOLUME 99.2 fL (80.0-94.0); MONOCYTES % 10.1 % (2.0-8.0); NEUTROPHILS % 37.6 % (40.0-76.0); RED BLOOD CELL COUNT 4.59 mill/uL (4.7-6.1); RED CELL DISTRIBUTION WIDTH 13.1 % (11.6-14.6); WHITE BLOOD COUNT 3.8 x1000/uL (4.5-11.0)
[2022-11-27 07:42] LABS: CHLORIDE 102 mEq/L (98-107); INDEX HEMOLYSI 1 (1-3); INDEX ICTERIC 1 (1-4); INDEX LIPEMIC 1 (1-3); POTASSIUM 3.8 mEq/L (3.5-5.1); SODIUM 132 mEq/L (136-145)
[2022-11-27 07:43] LABS: DIFFERENTIAL COMMENT 1
[2022-11-27 07:50] LABS: ALANINE AMINOTRANSFERASE 102 IU/L (13-61); ALBUMIN 3.8 g/dL (3.4-5.0); ASPARTATE AMINOTRANSFERASE 117 IU/L (15-37); BILIRUBIN TOTAL 1.4 mg/dL (0.1-1.0); CALCIUM 9.1 mg/dL (8.5-10.1); CARBON DIOXIDE 25 mEq/L (21-32); ETHANOL BLOOD < 10 mg/dL (<10); GLUCOSE 86 mg/dL (70-105); PROTEIN TOTAL 8.8 g/dL (6.0-8.3); UREA NITROGEN BLOOD 11 mg/dL (7-21)
[2022-11-27] MEDS ORDERED: ONDANSETRON HCL 4MG/2ML INJ IV PRN (12:00)
[2022-11-27] MEDS ORDERED: DOCUSATE SODIUM 100MG CAPSULE PO PRN (12:00)
[2022-11-27] MEDS ORDERED: NALOXONE HCL 0.4MG/ML VIAL IV PRN (12:00)
[2022-11-27] MEDS: SODIUM CHLORIDE 0.45% 1,000 ML IV SCH (12:00)
[2022-11-27] MEDS: MULTIVITAMINS,THER W-MINERALS TABLET PO SCH (12:00)
[2022-11-27] MEDS ORDERED: ACETAMINOPHEN 325MG TABLET PO PRN (12:00)
[2022-11-27] MEDS ORDERED: TRAMADOL 50MG TABLET PO PRN (12:00)
[2022-11-27] MEDS ORDERED: GUAIFENESIN 200MG/10ML SUGAR FREE UDC PO PRN (12:00)
[2022-11-27] MEDS ORDERED: CLONIDINE 0.1MG TABLET PO PRN (12:00)
[2022-11-27] MEDS ORDERED: MVI, ADULT NO.1 10 ML, FOLIC ACID 1 MG, THIAMINE HCL 100 MG in SODIUM CHLORIDE 0.9% 1,0... IV SCH ×4 (12:15)
[2022-11-27] MEDS: CHLORDIAZEPOXIDE 25MG CAPSULE PO SCH ×2 (14:00→21:30)
[2022-11-27 16:00] VITALS: BP 116/77; PULSE 62; RESP 20; TEMP 97.9
[2022-11-27 18:02] VITALS: BP 116/77; PULSE 62; RESP 20; TEMP 97.8
[2022-11-27 20:00] VITALS: BP 132/84; RESP 20; TEMP 97.3
[2022-11-28] VITALS: BP 105/75; PULSE 67; RESP 18; TEMP 97
[2022-11-28] MEDS: SODIUM CHLORIDE 0.45% 1,000 ML IV SCH (00:51)
[2022-11-28 04:00] VITALS: BP 108/70; PULSE 82; RESP 18; TEMP 97
[2022-11-28] MEDS: CHLORDIAZEPOXIDE 25MG CAPSULE PO SCH (05:49)
[2022-11-28 06:50] LABS: BASOPHILS % 0.3 % (0.0-2.0); EOSINOPHILS % 3.8 % (0.0-5.0); HEMATOCRIT. 42.9 % (42.0-52.0); HEMOGLOBIN. 14.2 g/dL (14.0-18.0); LYMPHOCYTES % 45.1 % (20.0-50.0); MEAN CORPUSCULAR HGB CONC 33.2 g/dL (31.0-37.0); MEAN CORPUSCULAR VOLUME 99.4 fL (80.0-94.0); MEAN PLATELET VOLUME 10.6 fl (7.4-10.4); MONOCYTES % 9.7 % (2.0-8.0); NEUTROPHILS % 41.1 % (40.0-76.0); RED BLOOD CELL COUNT 4.31 mill/uL (4.7-6.1); RED CELL DISTRIBUTION WIDTH 12.8 % (11.6-14.6)
[2022-11-28 06:52] LABS: DIFFERENTIAL COMMENT 1
[2022-11-28 06:54] LABS: ADD RBC MORPHOLOGY YES; PLATELET 43 x1000/uL (130-400)
[2022-11-28 07:18] LABS: CHLORIDE 100 mEq/L (98-107); INDEX HEMOLYSI 1 (1-3); INDEX ICTERIC 1 (1-4); INDEX LIPEMIC 1 (1-3); POTASSIUM 3.5 mEq/L (3.5-5.1); SODIUM 131 mEq/L (136-145)
[2022-11-28 07:29] LABS: ALANINE AMINOTRANSFERASE 78 IU/L (13-61); ALBUMIN 3.2 g/dL (3.4-5.0); ASPARTATE AMINOTRANSFERASE 69 IU/L (15-37); BILIRUBIN TOTAL 1.1 mg/dL (0.1-1.0); CALCIUM 8.3 mg/dL (8.5-10.1); CARBON DIOXIDE 24 mEq/L (21-32); CHOLESTEROL 106 mg/dL (<200); GLUCOSE 80 mg/dL (70-105); HDL CHOLESTEROL 77 mg/dL (40-59); LDL CHOLESTEROL 28 mg/dL (5-100); PROTEIN TOTAL 7.5 g/dL (6.0-8.3); TRIGLYCERIDE 47 mg/dL (0-150); UREA NITROGEN BLOOD 17 mg/dL (7-21)
[2022-11-28] MEDS: MULTIVITAMINS,THER W-MINERALS TABLET PO SCH (08:23)
[2022-11-28 08:26] VITALS: BP 105/77; PULSE 69; RESP 18; TEMP 98
[2022-11-28] MEDS ORDERED: FOLIC ACID 1MG TABLET PO SCH (09:00)
[2022-11-28 10:42] VITALS: BP 105/72; PULSE 69; TEMP 97; O2SAT 100
[2022-11-28 20:06] LABS: PLATELET ESTIMATE MARKEDLY DECREASED
[2022-11-29 06:36] LABS: PLATELET 49 x1000/uL (130-400)
== END 2022-11-28 11:32 | disposition home or self-care (01) | DRG 433 ==
LOC: ER 06:46 → 8WST 08:46 → EDBEDREQTM 08:51 → EDBEDREQ 08:51 → UNDODISIN 11-28 13:33
PROVIDERS: ADMIT Hospitalist; ATTEND Hospitalist
DX: K70.10 Alcoholic hepatitis without ascites (principal); F10.239 Alcohol dependence with withdrawal, unspecified; D69.6 Thrombocytopenia, unspecified; R74.01 Elevation of levels of liver transaminase levels; Z79.899 Other long term (current) drug therapy; Z82.49 Family history of ischemic heart disease and other diseases of the circulatory system
CPT/HCPCS: 36415; 71045; 80053; 80061; 80320; 85025; 93005; 99291; J2060; J2405; J3411; J3490; J7030; J7070; G0480

== ENCOUNTER 2022-11-29 17:28 | Emergency (ER) | payer OTHER ==
[~2022-11-29] VITALS: Ht 182.9 cm; Wt 72.0 kg
[2022-11-29 17:30] VITALS: BP 133/78; TEMP 98.4; O2SAT 97
[2022-11-29 17:36] VITALS: PULSE 107; RESP 18
[2022-11-29] MEDS ORDERED: CHLORDIAZEPOXIDE 25MG CAPSULE PO ONE (19:30)
== END 2022-11-29 20:45 | disposition home or self-care (01) ==
LOC: ER 17:28
DX: F10.239 Alcohol dependence with withdrawal, unspecified (principal); Z76.0 Encounter for issue of repeat prescription; Y90.9 Presence of alcohol in blood, level not specified
CPT/HCPCS: 99283

== ENCOUNTER 2022-12-17 00:41 | Emergency (ER) | payer OTHER ==
[~2022-12-17] VITALS: Ht 181.6 cm; Wt 67.0 kg
[2022-12-17 00:48] VITALS: PULSE 96; RESP 16
[2022-12-17 00:51] VITALS: BP 138/89; TEMP 98.1; O2SAT 97
[2022-12-17] MEDS ORDERED: CHLORDIAZEPOXIDE 5 MG CAPSULE PO ONE (02:15)
== END 2022-12-17 03:07 | disposition home or self-care (01) ==
LOC: ER 00:41
DX: F10.229 Alcohol dependence with intoxication, unspecified (principal); Z79.899 Other long term (current) drug therapy; Y90.0 Blood alcohol level of less than 20 mg/100 ml
CPT/HCPCS: 99281

== ENCOUNTER 2023-06-26 06:37 | Emergency (ER) | payer MEDICARE, OTHER ==
[~2023-06-26] VITALS: Ht 180.3 cm; Wt 69.0 kg
[~2023-06-26 06:37] MED LIST changes: +CHLO25CA11 MT; -L25 MT
[2023-06-26 06:46] VITALS: O2SAT 100
[2023-06-26 07:48] LABS: HEMATOCRIT. 45.3 % (42.0-52.0); HEMOGLOBIN. 15.6 g/dL (14.0-18.0); MEAN CORPUSCULAR HEMOGLOBIN 34.2 pg (28.0-32.0); MEAN CORPUSCULAR HGB CONC 34.3 g/dL (31.0-37.0); MEAN CORPUSCULAR VOLUME 99.6 fL (80.0-94.0); MEAN PLATELET VOLUME 9.1 fl (7.4-10.4); PLATELET 112 x1000/uL (130-400); RED BLOOD CELL COUNT 4.55 mill/uL (4.7-6.1); RED CELL DISTRIBUTION WIDTH 13.5 % (11.6-14.6); WHITE BLOOD COUNT 3.4 x1000/uL (4.5-11.0)
[2023-06-26 08:00] LABS: CALCIUM 8.9 mg/dL (8.7-10.4); CARBON DIOXIDE 24 mEq/L (21-32); CHLORIDE 99 mEq/L (98-107); POTASSIUM 4.2 mEq/L (3.5-5.1); SODIUM 132 mEq/L (136-145)
[2023-06-26 08:05] LABS: CREATININE 1.2 mg/dL (0.6-1.3); GLUCOSE 102 mg/dL (70-105)
[2023-06-26 08:06] LABS: ETHANOL BLOOD 14 mg/dL (<10); UREA NITROGEN BLOOD 9 mg/dL (9-23)
[2023-06-26 08:07] LABS: ALANINE AMINOTRANSFERASE 77 IU/L (10-49); ALBUMIN 4.3 g/dL (3.2-4.8); ASPARTATE AMINOTRANSFERASE 101 IU/L (<34)
[2023-06-26 08:08] LABS: PROTEIN TOTAL 8.2 g/dL (6.0-8.3)
[2023-06-26 08:17] LABS: DIFFERENTIAL COMMENT 1
[2023-06-26] MEDS: PANTOPRAZOLE 40MG DR TABLET PO ONE (08:28)
[2023-06-26] MEDS: DIAZEPAM 5 MG TABLET PO ONE (08:28)
[2023-06-26] MEDS: ONDANSETRON 4MG ODT PO ONE (08:28)
[2023-06-26] MEDS ORDERED: CHLO25CA11 MT (09:14)
[2023-06-26 09:20] LABS: CLARITY URINE CLEAR (CLEAR); COLOR URINE ORANGE (YELLOW); GLUCOSE URINE NEGATIVE (NEGATIVE); KETONES URINE TRACE (NEGATIVE); LEUKOCYTE ESTERASE URINE NEGATIVE (NEGATIVE); NITRITE URINE NEGATIVE (NEGATIVE); OCCULT BLOOD URINE NEGATIVE (NEGATIVE); PROTEIN URINE NEGATIVE (NEGATIVE); SPECIFIC GRAVITY URINE 1.016 (1.005-1.030)
[2023-06-26] MEDS: CHLORDIAZEPOXIDE 25MG CAPSULE PO ONE (09:29)
[2023-06-26] MEDS: MAGNESIUM/ALUMINUM HYDROXIDE/SIMETHICONE 30ML UDC PO STA (09:29)
[2023-06-26 09:43] VITALS: BP 147/83; PULSE 79; RESP 12; TEMP 98.7
[2023-06-26 09:50] LABS: PLATELET ESTIMATE DECREASED
[2023-06-26 10:03] LABS: *AMPHETAMINES SCREEN URINE NEGATIVE (NEGATIVE); *BARBITURATES SCREEN URINE NEGATIVE (NEGATIVE); *BENZODIAZEPINES SCREEN URINE NEGATIVE (NEGATIVE); *COCAINE SCREEN URINE NEGATIVE (NEGATIVE); CANNABINOID URINE SCREEN NEGATIVE (NEGATIVE); ECSTASY MDMA SCREEN URINE NEGATIVE (NEGATIVE); METHADONE URINE SCREEN Neg (NEGATIVE); OPIATES URINE SCREEN NEGATIVE (NEGATIVE); PHENCYCLIDINE URINE SCREEN NEGATIVE (NEGATIVE)
== END 2023-06-26 09:44 | disposition home or self-care (01) ==
LOC: ER 06:37
DX: F10.139 Alcohol abuse with withdrawal, unspecified (principal); F19.90 Other psychoactive substance use, unspecified, uncomplicated; Y90.0 Blood alcohol level of less than 20 mg/100 ml
CPT/HCPCS: 80053; 80305; 81003; 80320; 83690; 85025; 36415; 99284; Q0162; G0480

== ENCOUNTER 2023-08-09 23:16 | Emergency (ER) | payer MEDICARE ==
[~2023-08-09] VITALS: Ht 182.9 cm; Wt 69.0 kg
[2023-08-09 23:37] VITALS: TEMP 98.6; O2SAT 98
[2023-08-09 23:56] LABS: HEMATOCRIT. 45.3 % (42.0-52.0); HEMOGLOBIN. 15.4 g/dL (14.0-18.0); MEAN CORPUSCULAR HEMOGLOBIN 33.7 pg (28.0-32.0); MEAN CORPUSCULAR HGB CONC 33.9 g/dL (31.0-37.0); MEAN CORPUSCULAR VOLUME 99.4 fL (80.0-94.0); MEAN PLATELET VOLUME 9.7 fl (7.4-10.4); PLATELET 71 x1000/uL (130-400); RED BLOOD CELL COUNT 4.55 mill/uL (4.7-6.1); RED CELL DISTRIBUTION WIDTH 12.7 % (11.6-14.6); WHITE BLOOD COUNT 3.2 x1000/uL (4.5-11.0)
[2023-08-10 00:01] LABS: DIFFERENTIAL COMMENT 1
[2023-08-10 00:02] LABS: CHLORIDE 102 mEq/L (98-107); SODIUM 136 mEq/L (136-145)
[2023-08-10 00:03] LABS: CALCIUM 9.1 mg/dL (8.7-10.4); CARBON DIOXIDE 23 mEq/L (21-32)
[2023-08-10 00:08] LABS: CREATININE 1.2 mg/dL (0.6-1.3); GLUCOSE 91 mg/dL (70-105); UREA NITROGEN BLOOD 10 mg/dL (9-23)
[2023-08-10 00:42] LABS: ATYPICAL LYMPHOCYTES 10; PLATELET ESTIMATE SLIGHTLY DECREASED
[2023-08-10 00:43] LABS: TARGET CELLS 1+; TEAR DROP CELLS 3+
[2023-08-10 00:44] LABS: OVALOCYTES 1+
[2023-08-10 04:00] VITALS: BP 149/96; PULSE 78; RESP 15
== END 2023-08-10 04:20 | disposition home or self-care (01) ==
LOC: ER 23:16
DX: F10.229 Alcohol dependence with intoxication, unspecified (principal); Z79.899 Other long term (current) drug therapy; Y90.8 Blood alcohol level of 240 mg/100 ml or more
CPT/HCPCS: 36415; 80048; 80320; 85025; 99283; G0480

== ENCOUNTER 2023-08-10 15:32 | Emergency (ER) | payer MEDICARE ==
[~2023-08-10] VITALS: Ht 177.8 cm; Wt 75.0 kg
[2023-08-10 15:53] VITALS: BP 152/102; PULSE 96; RESP 18; TEMP 97.9; O2SAT 97
[2023-08-10 16:44] LABS: BASOPHILS % 2.5 % (0.0-2.0); DIFFERENTIAL COMMENT 0; EOSINOPHILS % 0.1 % (0.0-5.0); HEMATOCRIT. 46.4 % (42.0-52.0); HEMOGLOBIN. 15.4 g/dL (14.0-18.0); LYMPHOCYTES % 34.9 % (20.0-50.0); MEAN CORPUSCULAR HEMOGLOBIN 33.4 pg (28.0-32.0); MEAN CORPUSCULAR HGB CONC 33.2 g/dL (31.0-37.0); MEAN CORPUSCULAR VOLUME 100.5 fL (80.0-94.0); MEAN PLATELET VOLUME 10.4 fl (7.4-10.4); MONOCYTES % 14.1 % (2.0-8.0); NEUTROPHILS % 48.4 % (40.0-76.0); PLATELET 68 x1000/uL (130-400); RED BLOOD CELL COUNT 4.62 mill/uL (4.7-6.1); RED CELL DISTRIBUTION WIDTH 12.8 % (11.6-14.6); WHITE BLOOD COUNT 2.4 x1000/uL (4.5-11.0)
[2023-08-10 16:48] LABS: CARBON DIOXIDE 23 mEq/L (21-32); CHLORIDE 100 mEq/L (98-107); POTASSIUM 4.2 mEq/L (3.5-5.1); SODIUM 136 mEq/L (136-145)
[2023-08-10 16:49] LABS: CALCIUM 9.8 mg/dL (8.7-10.4)
[2023-08-10 16:53] LABS: CREATININE 1.2 mg/dL (0.6-1.3)
[2023-08-10 16:54] LABS: ETHANOL BLOOD < 10 mg/dL (<10); GLUCOSE 78 mg/dL (70-105); UREA NITROGEN BLOOD 14 mg/dL (9-23)
[2023-08-10 16:55] LABS: ALANINE AMINOTRANSFERASE 232 IU/L (10-49); ALBUMIN 4.6 g/dL (3.2-4.8); ASPARTATE AMINOTRANSFERASE 341 IU/L (<34)
[2023-08-10 16:56] LABS: BILIRUBIN DIRECT 0.5 mg/dL (<=3.0); PROTEIN TOTAL 8.7 g/dL (6.0-8.3)
[2023-08-10] MEDS ORDERED: CHLORDIAZEPOXIDE 25MG CAPSULE PO SCH (22:00)
== END 2023-08-10 18:20 | disposition home or self-care (01) ==
LOC: ER 15:32
DX: F10.239 Alcohol dependence with withdrawal, unspecified (principal); Z79.899 Other long term (current) drug therapy; Y90.0 Blood alcohol level of less than 20 mg/100 ml
CPT/HCPCS: 36415; 80048; 80076; 80320; 85025; 99283; G0480

== ENCOUNTER 2023-09-02 21:31 | Emergency (ER) | payer MEDICARE ==
[~2023-09-02] VITALS: Ht 180.3 cm; Wt 65.0 kg
[2023-09-03 00:33] VITALS: BP 130/89; PULSE 75; RESP 18; TEMP 98.1; O2SAT 99
[2023-09-03] MEDS ORDERED: ACETAMINOPHEN 500MG TABLET PO ONE (02:15)
[2023-09-03] MEDS ORDERED: LIDO700A15 TP (04:02)
[2023-09-03] MEDS ORDERED: NAPR-1176 MT (04:02)
[2023-09-03] MEDS ORDERED: ACETAMINOPHEN 500MG TABLET PO NR (04:45)
[2023-09-03] MEDS ORDERED: KETOROLAC 15MG/ML VIAL IM ONE (04:45)
[2023-09-03] MEDS: KETOROLAC 15MG/ML VIAL IM NR (05:19)
== END 2023-09-03 05:37 | disposition home or self-care (01) ==
LOC: ER 21:31
DX: G89.29 Other chronic pain (principal); M54.50 Low back pain, unspecified; F10.20 Alcohol dependence, uncomplicated; Z79.899 Other long term (current) drug therapy; Y90.9 Presence of alcohol in blood, level not specified
CPT/HCPCS: 99283; 96372; J1885